=== PATIENT | male | born 1955 | race Caucasian/White ===

== ENCOUNTER 2023-03-11 12:10 | Emergency (ER) | payer OTHER, SELFPAY ==
[2023-03-11 12:15] VITALS: BP 134/65; PULSE 95; RESP 17; TEMP 36.5; O2SAT 98
--- NOTE | 2023-03-11 12:15 | ED.GENADULT ---
HPI - General Adult General Chief complaint: Back Pain/Injury Stated complaint: back pain/injury Time Seen by Provider: 03/11/23 12:14 History of Present Illness HPI narrative: 67yo man presents with low back pain, new onset after getting out of heavy machinery, door caught the wind and pushed pt off onto the ground, landed on shoulder and rolled. No pain in chest or neck or shoulder. Did not hit head. Related Data Home Medications Medication Instructions Recorded Confirmed calcium 600 mg capsule 1 mg PO BID 03/11/23 03/11/23 diltiazem HCl 180 mg 180 mg PO BID 03/11/23 03/11/23 capsule,extended release 24 hr esomeprazole magnesium 20 mg 20 mg PO DAILY 03/11/23 03/11/23 capsule,delayed release (Nexium 24HR) magnesium 200 mg tablet 400 mg PO DAILY 03/11/23 03/11/23 metformin 1,000 mg tablet,extended 1,000 mg PO BID 03/11/23 03/11/23 release 24hr montelukast 10 mg tablet 10 mg PO HS 03/11/23 03/11/23 rivaroxaban 20 mg tablet 20 mg PO QPM 03/11/23 03/11/23 rosuvastatin 10 mg tablet 10 mg PO DAILY 03/11/23 03/11/23 spironolactone 25 mg tablet 25 mg PO DAILY 03/11/23 03/11/23 tadalafil 5 mg tablet 5 mg PO DAILY 03/11/23 03/11/23 valsartan 160 1 tablet PO DAILY 03/11/23 03/11/23 mg-hydrochlorothiazide 12.5 mg tablet Allergies Allergy/AdvReac Type Severity Reaction Status Date / Time Penicillins Allergy Anaphylaxis Verified 03/11/23 12:20 Review of Systems Review of Systems: All systems reviewed & are unremarkable except as noted in HPI and below Constitutional: Constitutional: Denies fever(s) ENT: Denies dysphagia Cardiovascular: Cardiovascular: Denies chest pain Respiratory: Respiratory: Denies dyspnea Exam Const: General: healthy appearing and no acute distress Nutritional Appearance: well nourished Eyes: Conjunctivae: conjunctivae normal Neck: Other: intact ROM Resp: Effort & Inspection: normal respiratory effort Cardio: Rate: regular rate GI: Inspection: non-distended Back/Spine/Pelvis: Back: no CVA tenderness Other: no midline spinal tenderness Skin: General skin exam: normal color, no jaundice and no pallor Course Vital Signs Vital signs: Vital Signs Temperature 36.5 C 03/11/23 12:15 Pulse Rate 95 03/11/23 12:15 Respiratory Rate 17 03/11/23 12:15 Blood Pressure 134/65 03/11/23 12:15 Pulse Oximetry 98 03/11/23 12:15 Oxygen Delivery Room Air 03/11/23 12:15 Temperature 36.5 C 03/11/23 12:15 Pulse Rate 95 03/11/23 12:15 Respiratory Rate 17 03/11/23 12:15 Blood Pressure 134/65 03/11/23 12:15 Pulse Oximetry 98 03/11/23 12:15 Oxygen Delivery Room Air 03/11/23 12:15 Medical Decision Making MDM Narrative Medical decision making narrative: low back pain without radiculopathy DDx muscle strain, muscle spasm, contusion, no evidence of spinal fracture, neck injury, or extremity injury Vital Signs Vital Signs: Vital Signs Temperature 36.5 C 03/11/23 12:15 Pulse Rate 95 03/11/23 12:15 Respiratory Rate 17 03/11/23 12:15 Blood Pressure 134/65 03/11/23 12:15 Pulse Oximetry 98 03/11/23 12:15 Oxygen Delivery Room Air 03/11/23 12:15 Temperature 36.5 C 03/11/23 12:15 Pulse Rate 95 03/11/23 12:15 Respiratory Rate 17 03/11/23 12:15 Blood Pressure 134/65 03/11/23 12:15 Pulse Oximetry 98 03/11/23 12:15 Oxygen Delivery Room Air 03/11/23 12:15 Discharge Plan Discharge Clinical Impression: Acute bilateral low back pain without sciatica, Strain of muscle, fascia and tendon of lower back, initial encounter Patient Disposition: Home, Self-Care Condition: Improved Additional Instructions: Take the prescribed medications as needed to help relax your back muscles, calm any inflammation, and help your back pain. It may also be helpful to apply ice to any painful area and then alternate with a heating pad to more fully relax the muscles. You may retur
[2023-03-11 12:30] VITALS: BP 114/67; PULSE 92; RESP 17; O2SAT 100
[2023-03-11] MEDS: ACETAMINOPHEN 500 MG TABLET 1000 MG PO (12:33)
[2023-03-11] MEDS: methocarbamoL 500 MG TABLET 1000 MG PO (12:33)
[2023-03-11] MEDS: KETOROLAC (*BKC) 60 MG/2 ML VIAL IM (12:35)
[2023-03-11] MEDS: ORPHENADRINE CITRATE 30 MG/ML 2 ML VIAL 60 MG IM (12:35)
[2023-03-11 13:00] VITALS: BP 120/60; PULSE 91; RESP 17; O2SAT 98
[2023-03-11 13:30] VITALS: BP 109/63; PULSE 89; RESP 18; O2SAT 97
[2023-03-11 13:40] VITALS: BP 109/63; PULSE 89; RESP 18; TEMP 36.5; O2SAT 97
== END 2023-03-11 13:40 | disposition home or self-care (01) ==
LOC: CHSED 12:49
PROVIDERS: Emergency Provider Emergency Medicine; PCP Family Medicine
DX: S39.012A Strain of muscle, fascia and tendon of lower back, initial encounter (principal); Z79.899 Other long term (current) drug therapy; Z79.84 Long term (current) use of oral hypoglycemic drugs; W31.9XXA Contact with unspecified machinery, initial encounter
CPT/HCPCS: 96372; 99284; A9270; J1885; J2360

== ENCOUNTER 2023-08-09 07:38 | Emergency (ER) | payer OTHER, SELFPAY ==
[2023-08-09] VITALS (13 sets, daily range): BP systolic 108–143; BP diastolic 63–89; PULSE 79–117; RESP 10–20; TEMP 36.3–36.9; O2SAT 96–99
--- NOTE | ~2023-08-09 | XR_ITS ---
EXAMINATION: XR chest 2V DATE: 08/09/2023 08:23 INDICATION: Chest pain. TECHNIQUE: Frontal and lateral views of the chest were obtained. COMPARISON: None. FINDINGS: A calcified right lung nodules consistent with old granulomatous disease. There are airspac e opacities at the lung bases. No pleural effusion or pneumothorax. The heart size is normal. IMPRESSION: 1. Airspace opacities at the lung bases, consistent with atelectasis or less likely pneumonia. Reviewed, dictated and finalized at location A. IMPRESSION: 1. Airspace opacities at the lung bases, consistent with atelectasis or less li jc pneumonia.
--- NOTE | 2023-08-09 07:39 | ECG_ITS ---
Measurements Intervals [place] Rate: 120 P: IN: 0 QRS: -4 QRSD: 86 T: 73 QT: 306 QTc: 433 Interpretive Statements ATRIAL FIBRILLATION WITH RAPID VENTRICULAR RESPONSE NONSPECIFIC T-WAVE ABNORMALITY ABNORMAL RHYTHM ECG NO PREVIOUS ECG AVAILABLE FOR COMPARISON Electronically Signed On 08-09-2023 7:51:12 CDT by Yash De Jesus M.D.
[2023-08-09 08:02] LABS: Basophils Percent Auto 0.6 % (0.2-1.2); Eosinophils Absolute Auto 0.1 K/mm3 (0-0.3); Eosinophils Percent Auto 1.3 % (0-4.4); Hematocrit 46.9 % (42.0-52.0); Hemoglobin 15.6 g/dL (14.0-18.0); Immature Granulocyte Absolute 0.03 K/mm3 (0.00-0.031); Immature Granulocyte Percent A 0.4 % (0-0.5); Lymphocytes Absolute Auto 1.17 K/mm3 (0.9-3.2); Lymphocytes Percent Auto 17.3 % (18.3-44.2); Mean Corpuscular HGB Conc 33.3 g/dl (32-36); Mean Corpuscular Hemoglobin 29.4 pg (26-34); Mean Corpuscular Volume 88.3 fl (80-100); Mean Platelet Volume 9.9 fl (7.4-10.4); Monocytes Absolute Auto 0.5 K/mm3 (0.1-0.6); Monocytes Percent Auto 7.1 % (2.6-8.5); Neutrophils Percent Auto 73.3 % (45.5-73.1); Platelet Count Result 309 k/mm3 (150-375); Red Blood Count 5.31 M/mm3 (4.6-6.20); Red Cell Distribution Width 12.8 % (11.5-14.5); White Blood Count 6.8 K/mm3 (4.5-10.0)
[2023-08-09 08:15] LABS: Alanine Aminotransferase 21 U/L (6-50); Albumin Level 4.5 g/dL (3.5-5.1); Alkaline Phosphatase 81 U/L (38-126); Anion Gap 7 mmol/L (4-12); Aspartate Amino Transferase 21 U/L (17-59); Bilirubin,Total 0.6 mg/dL (0.2-1.3); Blood Urea Nitrogen 19 mg/dL (9-20); Calcium 9.6 mg/dL (8.4-10.2); Carbon Dioxide 28 mmol/L (22-30); Chloride 103 mmol/L (98-107); Estimated CRCL calculation 99 ml/min; Estimated Glomerular Filt Rate > 60; Glucose 226 mg/dL (65-110); Lipase 127 U/L (23-300); Potassium 4.1 mmol/L (3.4-5.0); Sodium 138 mmol/L (137-145)
[2023-08-09 08:25] LABS: Troponin I < 0.012 ng/mL (0.000-0.034)
[2023-08-09 08:37] LABS: INR 1.3; Prothrombin Time 17.2 Seconds (11.1-14.7)
[2023-08-09 08:38] LABS: Partial Thromboplastin Time 33.9 Seconds (22.3-36.8)
[2023-08-09] MEDS: ASPIRIN 81 MG CHEWABLE TABLET 324 MG PO (08:50)
--- NOTE | 2023-08-09 09:09 | ED.CHESTPAIN ---
HPI - Chest Pain General Chief Complaint: Chest Pain Stated Complaint: CP Time Seen by Provider: 08/09/23 08:52 History of Present Illness HPI narrative: 67-year-old male presenting to the emergency department for evaluation of epigastric and left upper quadrant abdominal pain. Patient states he is having breakfast this morning when he had onset of the chest pain. Patient states it did radiate to his back and neck. Patient did have associated diaphoresis with this. Patient does have a history of AFib but has no prior history of RI. Patient reports he did have a stress test approximately 1 year ago and this was negative. Upon arrival to the emergency department patient states that his pain is significantly improved. Patient does have reproducible left upper quadrant abdominal pain. Patient does take Cardizem and Xarelto for AFib. Patient is diabetic Related Data Home Medications Medication Instructions Recorded Confirmed diltiazem HCl 180 mg 180 mg PO BID 03/11/23 08/09/23 capsule,extended release 24 hr metformin 1,000 mg tablet,extended 1,000 mg PO BID 03/11/23 08/09/23 release 24hr (osmotic) montelukast 10 mg tablet 10 mg PO HS 03/11/23 08/09/23 rivaroxaban 20 mg tablet 20 mg PO QPM 03/11/23 08/09/23 rosuvastatin 10 mg tablet 10 mg PO DAILY 03/11/23 08/09/23 spironolactone 25 mg tablet 25 mg PO DAILY 03/11/23 08/09/23 tadalafil 5 mg tablet 5 mg PO DAILY 03/11/23 03/11/23 valsartan 160 1 tablet PO DAILY 03/11/23 08/09/23 mg-hydrochlorothiazide 12.5 mg tablet Allergies Allergy/AdvReac Type Severity Reaction Status Date / Time Penicillins Allergy Anaphylaxis Verified 08/09/23 07:53 Review of Systems Review of Systems: All systems reviewed & are unremarkable except as noted in HPI and below Exam Narrative: APPEARANCE: Well appearing, no pain, no distress, well-nourished. HEAD: normocephalic, atraumatic. EYES: PERRLA/EOMI, conjunctivae clear. NOSE: Normal no drainage EARS:TMS clear with good light reflex. THROAT: Pharynx clear, no exudate. NECK: Supple. No adenopathy, no masses. RESPIRATORY: Airway patent, respirations nonlabored. Clear to auscultation bilaterally, no rales, rhonchi, wheezing. CARDIOVASCULAR: Regular rate and rhythm without murmurs rubs or gallops. ABDOMINAL: reproducible left upper quadrant tenderness to palpation MUSCULOSKELETAL: Moves all extremities. Strength/ROM intact, No edema, No calf tenderness. NEURO: Alert. Cranial nerves II through XII intact. grossly intact SKIN: Warm, dry. Normal Color Course Vital Signs Vital signs: Vital Signs Temperature 97.3 F L 08/09/23 07:46 Pulse Rate 112 H 08/09/23 07:46 Respiratory Rate 18 08/09/23 07:46 Blood Pressure 143/63 H 08/09/23 07:46 Pulse Oximetry 98 08/09/23 07:46 Oxygen Delivery Room Air 08/09/23 07:46 Temperature 98.4 F 08/09/23 12:59 Pulse Rate 79 08/09/23 12:59 Respiratory Rate 18 08/09/23 12:59 Blood Pressure 124/77 08/09/23 12:59 Pulse Oximetry 99 08/09/23 12:59 Oxygen Delivery Room Air 08/09/23 07:46 MDM - Chest Pain MDM Narrative Medical decision making narrative: 67-year-old male present to the ED for evaluation of left upper quadrant pain. Patient is afebrile with no leukocytosis and a stable hemoglobin of 15.6. Patient has an INR of 1.3. No acute abnormalities on the patient's CMP and patient's initial troponin was negative. Lipase was negative and patient's initial EKG showed AFib with RVR with heart rate in the 110s. Patient's heart rate did improve with IV fluids and with a small dose of Cardizem. Patient confirmed he did take his Cardizem this morning. Patient states his symptoms were resolved with a GI cocktail. Patient is afebrile with no leukocytosis and a stable hemoglobin patient has negative serial troponins and a negative D-dimer. EKG showed no evidence of acute STEMI. Due to patient having chest pain with associated diaphoresis he was offered ad
[2023-08-09] MEDS: NITROGLYCERIN SL 0.4 MG TABLET SUBLINGUAL (09:32)
[2023-08-09] MEDS: SODIUM CHLORIDE 0.9% IV 500 ML 999 ML IV CONT (09:32)
[2023-08-09] MEDS: BELLADONNA ALK/PHENOB ELIX 10 ML, MAG HYDROX/ALUMINUM HYD/SIMETH 30 ML, LIDOCAINE HCL 2... PO (09:33)
[2023-08-09 10:20] LABS: D Dimer 0.28 ug/mL (<0.48)
--- NOTE | 2023-08-09 10:36 | ECG_ITS ---
Measurements Intervals [place] Rate: 104 P: NM: 0 QRS: 14 QRSD: 84 T: 64 QT: 309 QTc: 408 Interpretive Statements ATRIAL FIBRILLATION WITH RAPID VENTRICULAR RESPONSE NONSPECIFIC T-WAVE ABNORMALITY ABNORMAL RHYTHM ECG COMPARED TO ECG 08/09/2023 07:42:41 NO SIGNIFICANT CHANGES Electronically Signed On 08-09-2023 12:33:23 CDT by Yash De Jesus M.D.
[2023-08-09] MEDS: dilTIAZem HCl INJ 25 MG/5 ML VIAL 10 MG IV PUSH (10:59)
[2023-08-09 11:01] LABS: Troponin I < 0.012 ng/mL (0.000-0.034)
== END 2023-08-09 12:59 | disposition home or self-care (01) ==
PROVIDERS: Emergency Provider Emergency Medicine; PCP Family Medicine
DX: R07.89 Other chest pain (principal)
CPT/HCPCS: 36415; 71046; 80053; 83690; 84484; 85025; 85380; 85610; 85730; 93005; 96361; 96374; 99284; A9270; J7040

== ENCOUNTER 2023-08-18 22:29 | Observation (INO) | payer OTHER, MEDICARE, SELFPAY ==
--- NOTE | ~2023-08-18 | XR_ITS ---
Clinical Indication: Chest pain AP and lateral views of the chest: Comparison: 08/09/2023 Findings: Probable subsegmental left basilar atelectatic change. Right lung clear.. Cardiomediastina l silhouette is within normal limits. Bones and soft tissues are unremarkable. Impression: Probable subsegmental left basilar atelectatic change or scarring. Reviewed, dictated and finalized at location . Impression: Probable subsegmental left basilar atelectatic change or scarring.
--- NOTE | ~2023-08-18 | CT_ITS ---
Clinical Indication: Chest pain, shortness of breath CT Scan of the Chest with Contrast: Technique: Contiguous sections were acquired throughout the chest after intravenous administration of 100 cc of Omnipaque 350. Dose reduction technique was used on this scan by utilizing automated expos ure control and iterative reconstruction technique. The dose-length product (DLP) was 956.07 mGy-cm. Findings: There is no evidence of any significant mediastinal, hilar or axillary lymphadenopathy. No large cent ral pulmonary embolus seen. Evaluation for smaller, more peripheral pulmonary emboli is suboptimal du e to timing of contrast bolus. There is no evidence of aortic dissection or aneurysm. There is no evidence of pleural or pericardial effusion. The lungs are clear, aside from left basilar atelectatic change and several scattered calcified granu edita. Images through the upper abdomen reveal no abnormalities. Impression: No large central pulmonary embolus. Evaluation for smaller, more peripheral pulmonary emboli is subop timal due to timing of the contrast bolus. No significant pulmonary abnormality. Reviewed, dictated and finalized at [facility]. Impression: No large central pulmonary embolus. Evaluation for smaller, more peripheral pul monary emboli is suboptimal due to timing of the contrast bolus. No significant pulmonary abnormality.
--- NOTE | ~2023-08-18 | US_ITS ---
Limited Abdominal Sonogram: Real-time sonographic imaging of the right upper quadrant was performed. Clinical History: Right upper quadrant pain Findings: The liver appears mildly echogenic/heterogeneous, with no evidence of mass lesion or bile duct dilatation. Main portal vein demonstrates normal direction of flow. The gallbladder is well dist ended, and appears normal with no evidence of gallstone or wall thickening. The common bile duct shante ures 5 mm. The visualized pancreas, aorta, and IVC are unremarkable. Impression: Suspected fatty infiltration of the liver versus other chronic liver disease. Reviewed, dictated and finalized at location M. Impression: Suspected fatty infiltration of the liver versus other chronic liver disease.
--- NOTE | 2023-08-18 22:31 | PC.NURSE ---
Patient arrived at triage desk clutching his chest c/o chest pain that feels like something is sitting on my chest. States it is hard to breathe. Took a nitro prior to arrival around 2029. Patient taken from triage desk to ED room 7.
[2023-08-18 22:34] VITALS: BP 128/77; PULSE 114; RESP 20; TEMP 36.9; O2SAT 98
--- NOTE | 2023-08-18 22:35 | ECG_ITS ---
SEE SCANNED COPY FOR CONFIRMED REPORT MTDD
[2023-08-18] MEDS: ASPIRIN 81 MG CHEWABLE TABLET 324 MG PO (22:40)
[2023-08-18 22:46] LABS: Basophils Percent Auto 0.3 % (0.2-1.2); Eosinophils Absolute Auto 0.1 K/mm3 (0-0.3); Eosinophils Percent Auto 0.8 % (0-4.4); Hematocrit 43.2 % (42.0-52.0); Hemoglobin 14.8 g/dL (14.0-18.0); Immature Granulocyte Absolute 0.04 K/mm3 (0.00-0.031); Immature Granulocyte Percent A 0.3 % (0-0.5); Lymphocytes Absolute Auto 0.73 K/mm3 (0.9-3.2); Lymphocytes Percent Auto 6.3 % (18.3-44.2); Mean Corpuscular HGB Conc 34.3 g/dl (32-36); Mean Corpuscular Hemoglobin 30.1 pg (26-34); Mean Corpuscular Volume 87.8 fl (80-100); Mean Platelet Volume 9.8 fl (7.4-10.4); Monocytes Absolute Auto 0.7 K/mm3 (0.1-0.6); Monocytes Percent Auto 5.8 % (2.6-8.5); Neutrophils Absolute Auto 10.1 K/mm3 (1.3-6.7); Neutrophils Percent Auto 86.5 % (45.5-73.1); Platelet Count Result 248 k/mm3 (150-375); Red Blood Count 4.92 M/mm3 (4.6-6.20); Red Cell Distribution Width 13.2 % (11.5-14.5); White Blood Count 11.7 K/mm3 (4.5-10.0)
[2023-08-18 22:58] LABS: INR 1.6; Prothrombin Time 20.1 Seconds (11.1-14.7)
[2023-08-18 22:58] LABS: Alanine Aminotransferase 18 U/L (6-50); Albumin Level 4.6 g/dL (3.5-5.1); Alkaline Phosphatase 90 U/L (38-126); Anion Gap 8 mmol/L (4-12); Aspartate Amino Transferase 20 U/L (17-59); Bilirubin,Total 0.7 mg/dL (0.2-1.3); Blood Urea Nitrogen 18 mg/dL (9-20); Calcium 9.3 mg/dL (8.4-10.2); Carbon Dioxide 28 mmol/L (22-30); Chloride 99 mmol/L (98-107); Estimated CRCL calculation 84 ml/min; Estimated Glomerular Filt Rate > 60; Glucose 319 mg/dL (65-110); Lipase 122 U/L (23-300); Potassium 3.8 mmol/L (3.4-5.0); Sodium 135 mmol/L (137-145)
[2023-08-18 22:59] LABS: Partial Thromboplastin Time 33.4 Seconds (22.3-36.8)
--- NOTE | 2023-08-18 23:03 | ED.CHESTPAIN ---
HPI - Chest Pain General Chief Complaint: Chest Pain Stated Complaint: chest pain, sob Time Seen by Provider: 08/18/23 22:36 Source: patient Mode of arrival: ambulatory Limitations: no limitations History of Present Illness HPI narrative: Was 67-year-old male presenting for chest pain has history of AFib. On Xarelto. Thought it might have been AFib were some other sort of heart issue. No shortness of breath however pain is worse with deep breathing. Related Data Home Medications Medication Instructions Recorded Confirmed diltiazem HCl 180 mg 180 mg PO BID 03/11/23 08/09/23 capsule,extended release 24 hr metformin 1,000 mg tablet,extended 1,000 mg PO BID 03/11/23 08/09/23 release 24hr (osmotic) montelukast 10 mg tablet 10 mg PO HS 03/11/23 08/09/23 rivaroxaban 20 mg tablet 20 mg PO QPM 03/11/23 08/09/23 rosuvastatin 10 mg tablet 10 mg PO DAILY 03/11/23 08/09/23 spironolactone 25 mg tablet 25 mg PO DAILY 03/11/23 08/09/23 tadalafil 5 mg tablet 5 mg PO DAILY 03/11/23 03/11/23 valsartan 160 1 tablet PO DAILY 03/11/23 08/09/23 mg-hydrochlorothiazide 12.5 mg tablet Allergies Allergy/AdvReac Type Severity Reaction Status Date / Time Penicillins Allergy Anaphylaxis Verified 08/18/23 22:39 Review of Systems Review of Systems: All systems reviewed & are unremarkable except as noted in HPI and below Exam Narrative: Constitutional: Generally well appearing, no acute distress Head: Atraumatic, no deformities. Eyes: Pupils equal, round, and reactive to light. Neck: Supple, no tracheal deviation, no JVD. ENMT: Mucous membranes moist Cardiovascular: S1, S2 auscultated. No murmurs, rubs, or gallops. No S3/S4. Normal Distal pulses. No peripheral edema. Respiratory: Lung sounds equal. No wheezes, rales, or rhonchi. Gastrointestinal: Abdomen was soft and non-tender. Non-distended. No rebound or guarding. Genitourinary: Deferred Musculoskeletal: Normal muscle tone and bulk. No obvious deformities or tenderness over extremities. Skin: No rashes. Neurological: Strength 5/5 in extremities. Cranial nerves I-XII grossly intact. Distal sensation intact. Mental Status: Awake, alert and oriented x3. Follows commands Course Vital Signs Vital signs: Vital Signs Temperature 36.9 C 08/18/23 22:34 Pulse Rate 114 H 08/18/23 22:34 Respiratory Rate 20 08/18/23 22:34 Blood Pressure 128/77 08/18/23 22:34 Pulse Oximetry 98 08/18/23 22:34 Oxygen Delivery Room Air 08/18/23 22:34 Temperature 36.9 C 08/18/23 22:34 Pulse Rate 110 H 08/19/23 02:50 Respiratory Rate 15 08/19/23 02:50 Blood Pressure 107/75 08/19/23 02:50 Pulse Oximetry 98 08/19/23 02:50 Oxygen Delivery Room Air 08/18/23 22:34 MDM - Chest Pain MDM Narrative Medical decision making narrative: 67-year-old male presenting for chest pain, central, worse with deep breathing since 3:00 p.m. today. On exam he is generally well-appearing however he is a bit tachycardic. Nontoxic appearing. EKG obtained showing no obvious ischemic changes in does not appear to be in AFib. EKG obtained, shows sinus tachycardia with occasional supraventricular premature complexes. Normal intervals. Rate is 112. No ST elevation or depression. Impression: No STEMI Obtaining cardiac workup with patient, CTA chest for PE given his tachycardia cannot be ruled out. Labs and imaging reviewed. Troponin negative x2. CTA shows no PE but is not a great study. Patient remains tachycardic. BNP is elevated. Will admit for heart score of 4, patient is still having some chest pains, and persistent tachycardia. Discussed with hospitalist. Admission orders placed. Lab Data 08/18/23 22:41 08/18/23 22:41 Labs: Lab Results 08/18/23 08/18/23 08/18/23 Range/Units 22:41 22:42 22:56 WBC 11.7 H (4.5-10.0) K/mm3 RBC 4.92 (4.6-6.20) M/mm3 Hgb 14.8 (14.0-18.0) g/dL Hct 43.2 (42.0-52.0) % MCV 87.8
[2023-08-18 23:08] LABS: Troponin I < 0.012 ng/mL (0.000-0.034)
[2023-08-19] VITALS (25 sets, daily range): BP systolic 107–160; BP diastolic 62–99; PULSE 97–136; RESP 14–22; TEMP 36.4–37.8; O2SAT 91–98; BMI 41.8
[2023-08-19 00:24] LABS: D Dimer 0.35 ug/mL (<0.48)
[2023-08-19 00:24] LABS: NT Pro B Type Natriuretic Pept 1000 pg/mL (19.9-100)
[2023-08-19 02:02] LABS: Troponin I < 0.012 ng/mL (0.000-0.034)
--- NOTE | 2023-08-19 04:25 | ADMGEN ---
This patient, Kleber Melara, was admitted to IMU Room 211-01. Patient/family oriented to hospital policies and general routines including ID bracelet, bed and alarms, visiting hours, pain management, procedures, bathroom and other care routines, personal items, smoking policy, room service/diet, and visiting hours. Information on how to activate the Rapid Response Team has been discussed. Patient/Family are encouraged to report perceived risks to care and to ask questions if they do not understand what they are told or what they should do.
--- NOTE | 2023-08-19 04:50 | ECG_ITS ---
SEE SCANNED COPY FOR CONFIRMED REPORT MTDD
[2023-08-19 05:02] LABS: Troponin I < 0.012 ng/mL (0.000-0.034)
[2023-08-19] MEDS: SODIUM CHLORIDE 0.9% IV 1,000 ML 999 ML IV CONT (05:51)
--- NOTE | 2023-08-19 05:55 | PM.IMHP ---
H&P: HPI History of Present Illness Date/Time: 08/19/23 05:55 Chief Complaint: Chest pain Narrative: 67-year-old male with a past medical history of BPH, essential hypertension, morbid obesity, obstructive sleep apnea and paroxysmal atrial fibrillation who presented to the ER with chest pain. Patient reports that his symptoms initially started around 15:30 yesterday. The symptoms started a couple hours after he had eaten. He then ate again around 17:00. After that meal the patient's pain significantly increased. Pain was 7/10 intensity at its worst. He reports that his pain is currently 4/10 in intensity but spiked to a 7/10 intensity with palpation. He reports a generalized tightness around distal lower chest that is constant but is worse with deep breathing. He denied any known fevers or chills at home. But at the time my evaluation the patient reports that he was actively cold and at that time he was mildly diaphoretic and hot to touch. Temperature was 99.3?. He reports that his stools have been smaller over the last 24 hours due to decreased appetite. He has not had any nausea or vomiting. He states that he has been having similar symptoms intermittently for the past 4 years. The pain used to get worse when he would eat 1000 [place] dressing so he quit eating the dressing and the symptoms improved. He reports that the pain does get worse when he also eats fatty meals. When he has these symptoms intermittently he does have some associated loose stools but has not had loose stools with this occurrence. It sounds as if the symptoms are increasing in frequency and duration. He had a stress test last year that was negative. 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 He was evaluated in the ER 9 days ago and treated with a GI cocktail which improved his symptoms and discharged home after he had 2 neg troponins. He reports that his pain 9 days ago was a little bit lower and more located in his abdomen. Today is biggest complaint is that the pain is worse when he takes a deep breath. He had a CTA performed in the ER that was negative for central pulmonary embolism but contrast bolus was poorly timed. He reports that he did take and nitro sublingual at home with no improvement in his symptoms. In the ER was noted to be tachycardic EKG demonstrated sinus tachycardia. He reports that he feels dehydrated and thirsty but has no appetite. He does report that he is short of breath for shortness of breast that is unchanged from baseline. He has not had any cough or congestion. He denies any ill contacts. Review of Systems Review of Systems: 12 systems were reviewed with pertinent positives and negatives per HPI. Except as documented in the HPI, all other systems were reviewed and are negative. He has chronic dribbling of urine since his TURP approximately 10 years ago. He has chronic shortness of breath that is unchanged from baseline. The patient reports he has chronic pitting edema lower extremities unchanged from baseline [facility] Past Medical History Medical History (Updated 08/19/23 @ 06:26 by Lesley Ambrocio DO) BPH (benign prostatic hyperplasia) Essential hypertension Morbid obesity with BMI of 40.0-44.9, adult Obstructive sleep apnea on CPAP Type 2 diabetes mellitus Surgical History Surgical History (Updated 08/19/23 @ 06:24 by Lesley Ambrocio DO) History of sinus surgery History of transurethral resection of prostate (~2012) Family History Family History (Updated 08/19/23 @ 06:27 by Lesley Ambrocio DO) Mother Colon cancer Father , At age 54 Post poliomyelitis syndrome Social History Social History (Updated 08/19/23 @ 06:29 by Lesley Ambrocio DO) Social History: The patient lives with his they have been since 1976. A raised a daughter and a son who are both healthy. He smoked 1 pack of cigarettes per day for approximately 35 years. He quit smoking
[2023-08-19 06:04] LABS: Basophils Percent Auto 0.2 % (0.2-1.2); Eosinophils Percent Auto 0.4 % (0-4.4); Hematocrit 43.4 % (42.0-52.0); Hemoglobin 14.7 g/dL (14.0-18.0); Immature Granulocyte Absolute 0.03 K/mm3 (0.00-0.031); Immature Granulocyte Percent A 0.3 % (0-0.5); Lymphocytes Absolute Auto 0.81 K/mm3 (0.9-3.2); Lymphocytes Percent Auto 8.3 % (18.3-44.2); Mean Corpuscular HGB Conc 33.9 g/dl (32-36); Mean Corpuscular Hemoglobin 30.1 pg (26-34); Mean Corpuscular Volume 88.9 fl (80-100); Mean Platelet Volume 10.6 fl (7.4-10.4); Monocytes Absolute Auto 0.9 K/mm3 (0.1-0.6); Monocytes Percent Auto 9.1 % (2.6-8.5); Neutrophils Absolute Auto 7.9 K/mm3 (1.3-6.7); Neutrophils Percent Auto 81.7 % (45.5-73.1); Platelet Count Result 249 k/mm3 (150-375); Red Blood Count 4.88 M/mm3 (4.6-6.20); Red Cell Distribution Width 13.1 % (11.5-14.5); White Blood Count 9.7 K/mm3 (4.5-10.0)
[2023-08-19] MEDS: MORPHINE SULFATE (*CRX) 4 MG/ML INJ IV PUSH (06:28)
[2023-08-19 06:39] LABS: Alanine Aminotransferase 18 U/L (6-50); Albumin Level 4.2 g/dL (3.5-5.1); Alkaline Phosphatase 79 U/L (38-126); Amylase 47 U/L (30-110); Anion Gap 8 mmol/L (4-12); Aspartate Amino Transferase 18 U/L (17-59); Bilirubin,Total 0.6 mg/dL (0.2-1.3); Blood Urea Nitrogen 16 mg/dL (9-20); Calcium 9.2 mg/dL (8.4-10.2); Carbon Dioxide 26 mmol/L (22-30); Chloride 100 mmol/L (98-107); Estimated CRCL calculation 97 ml/min; Estimated Glomerular Filt Rate > 60; Glucose 267 mg/dL (65-110); Lipase 116 U/L (23-300); Potassium 4.5 mmol/L (3.4-5.0); Sodium 134 mmol/L (137-145)
[2023-08-19] MEDS: SODIUM CHLORIDE 0.9% IV 1,000 ML 150 ML IV CONT (06:40)
[2023-08-19] MEDS: metroNIDAZOLE 500 MG/ISO 100ML 500 MG/100 ML BAG 100 MG IVPB ×4 (06:44→23:22)
[2023-08-19 06:54] LABS: Procalcitonin 0.1 ng/mL
[2023-08-19 07:33] LABS: Lactic Acid Reflex 2.2 mmol/L (0.7-2.0)
[2023-08-19 08:17] LABS: Glucose Point of Care 241 mg/dl (65-105)
[2023-08-19] MEDS: dilTIAZem HCL CD 180 MG CAP.24HR PO ×2 (08:55→18:14)
[2023-08-19 10:17] LABS: Reflex Lactic Acid Yes or No Add Lactic
[2023-08-19 12:30] LABS: Glucose Point of Care 249 mg/dl (65-105)
--- NOTE | 2023-08-19 13:10 | PM.CNGS ---
Assessment and Plan Assessment and plan (1) Cholecystitis with cholelithiasis: Code(s): K80.10 - Calculus of gallbladder with chronic cholecystitis without obstruction Status: Acute Assessment and Plan: long discussion with patient and family and decision to proceed with urgent cholecystectomy, discussed with medical team and agreed with plan (2) Afib: Code(s): I48.91 - Unspecified atrial fibrillation Status: Acute Assessment and Plan: continue to hold Xarelto at this time (3) Type 2 diabetes mellitus with hyperglycemia, without long-term current use of insulin: Code(s): E11.65 - Type 2 diabetes mellitus with hyperglycemia Status: Acute Assessment and Plan: stable, continue current management per medical team History of Present Illness Consult details Consult date: 08/19/23 Reason for consult: abdominal pain Requesting physician: Genaro Arceo MD Narrative: The patient is a 67-year-old male with multiple medical issues presenting to the hospital complaining of severe epigastric pain with radiation to the chest. He reports that the symptoms have been ongoing for the last couple of months and worsening in nature. The patient reports that the episodes usually come on after eating, especially fatty meals. The patient also describes associated bloating and nausea. The patient has had an extensive cardiac workup that has been negative. He was actually seen in the ER couple of weeks ago for similar symptoms. The patient has been admitted to the medical service and workup, including imaging, is significant for what looks to be acute on chronic cholecystitis. Review of Systems Review of Systems: All systems reviewed & are unremarkable except as noted in HPI and below PMFSH Past Medical History Medical History BPH (benign prostatic hyperplasia) Essential hypertension Morbid obesity with BMI of 40.0-44.9, adult Obstructive sleep apnea on CPAP Type 2 diabetes mellitus Surgical History Surgical History History of sinus surgery History of transurethral resection of prostate (~2012) Family History Family History Mother Colon cancer Father , At age 54 Post poliomyelitis syndrome Social History Social History Social History: The patient lives with his they have been since 1976. A raised a daughter and a son who are both healthy. He smoked 1 pack of cigarettes per day for approximately 35 years. He quit smoking 25 years ago. He drinks approximately 1 alcoholic beverage a month. He denies illicit substance use. 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 Code status: Full code Surrogate decision maker: Smoking packs per day: 1 Smoking cigarettes per day: 20.0 Years smoked: 35 Smoking pack-years: 35.00 Smoking status: Former smoker Tobacco type: cigarettes Alcohol intake: current Drinks per week: 1 Substance use: never Do You Feel Safe in your Home?: Yes Lack of Transportation: No Lack of Food: Never True Current Housing: I Have Housing Concerned About Future Housing: No Difficulty Paying Gas/Electric Bills: No Difficulty Paying for Meds: No Currently Unemployed: No Education: High School Diploma/GED Difficulty w/ Childcare or Family Care: No Spiritual care concerns: No Meds Home Medications and Allergies Home Medications Medication Instructions Recorded Confirmed Type diltiazem HCl 180 mg 180 mg PO BID 03/11/23 08/19/23 History capsule,extended release 24 hr metformin 1,000 mg tablet,extended 1,000 mg PO BID 03/11/23 08/19/23 History release 24hr (osmotic) montelukast 10 mg tablet 10 mg PO HS 03/11/23 08/19/23 History rivaroxaban 20
--- NOTE | 2023-08-19 13:16 | WPDHPUPDATE1 ---
History and Physical Update Update Date/Time: 08/19/23 13:16 History and Physical has been reviewed, including an updated exam of the patient. There are NO changes in the patient's condition. Risks, benefits, and alternatives have been discussed and questions answered. Patient agrees to proceed with procedure.
--- NOTE | 2023-08-19 15:18 | PM.IMPN ---
Progress Note: A&P Assessment and Plan (1) Right upper quadrant pain: Code(s): R10.11 - Right upper quadrant pain Status: Acute (2) SIRS (systemic inflammatory response syndrome): Code(s): R65.10 - Systemic inflammatory response syndrome (SIRS) of non-infectious origin without acute organ dysfunction Status: Acute (3) Atypical chest pain: Code(s): R07.89 - Other chest pain Status: Acute (4) Type 2 diabetes mellitus with hyperglycemia, without long-term current use of insulin: Code(s): E11.65 - Type 2 diabetes mellitus with hyperglycemia Status: Acute (5) Obstructive sleep apnea on CPAP: Code(s): G47.33 - Obstructive sleep apnea (adult) (pediatric) Status: Acute Plan Patient is atypical chest pain with negative cardiac enzymes. Given the presence of patient's right upper quadrant abdominal pain and associated symptoms with food, elevated white count and mildly elevated temperature consistent with SIRS criteria. The patient's clinical picture is most likely consistent with acute on chronic cholecystitis. Will obtain right upper quadrant ultrasound. Patient will remain NPO except meds with sips. Given SIRS criteria will check stat blood cultures and start empiric antibiotic therapy with Rocephin and Flagyl. Patient did not receive the fluid bolus ordered in the ER. Will give 1 L normal saline bolus in place patient on NS at 150 mL an hour thereafter. Will check CBC, CMP, lipase, amylase, lactic and procalcitonin with a.m. labs. Given the cardiac chest pain is ruled out will transfer the patient to medcial floor. Patient has type 2 diabetes mellitus with hyperglycemia. Will hold the patient's metformin as she is NPO. Face with placed on moderate sliding scale insulin with Accu-Cheks q.6 hours while NPO. Patient does have paroxysmal AFib but currently in sinus rhythm. He is on Xarelto at home. This will be placed on hold. His last dose of Xarelto was taken on the 13 in the evening. 08/19/23: EKG reviewed showing sinus tachycardia wit nonspecific T wave changes. Trop negative x 3. Recent (<1yr ago) normal stress test. GB US appears normal. Having fevers and LA was elevated. Chest clear. BCx collected. Will order UA but probably related to acute cholecystitis. Okay to proceed with surgery. Suspect this will not improve all of his symptoms. He may need EGD to exclude gastritis/Hpylori. CPAP at night. Order self-caths. SSI for his DM. Subjective Date/time seen: 08/19/23 15:18 Interval history: 67yo male with DM, CATALINA, pAFib and HTN here for abdominal and chest pain. He feels better today. He was having episodes of SOB when beding over. Also with SOB climbing stairs but more longstanding and not progressively worsening. No CP wiht activity. Stress test and Echo less than a year ago were normal per patient and family. Not available for my review. Also has episodes of bloating and diarrhea after eating but these are seperate then the lower chest/upper abd pain. Abd pain does not seem to be associated with food. Exam Narrative: Tm 100.1 98.8 120/62 97 18 95% ra Gen - NARD Chest - CTA bilaterally, nml RR CV - RRR S1/S2 Abd - Soft, NT/ND, Positive BS Ext - No pedal edema Psych - Nml mood and affect Skin - Warm and dry Objective Data Vital Signs Vital Signs: Vital Signs - 24 hr 08/18/23 22:34 08/18/23 22:34 08/19/23 00:05 Temperature 98.4 F Pulse Rate 114 H 107 H Respiratory Rate 20 19 Blood Pressure 128/77 113/72 Pulse Oximetry 98 97 Oxygen Delivery Room Air Room Air 08/19/23 01:11 08/19/23 02:50 08/19/23 03:35 Temperature Pulse Rate 111 H 110 H 107 H Respiratory Rate 14 15 20 Blood Pressure 117/69 107/75 121/64 Pulse Oximetry 98 98 94 Oxygen Delivery 08/19/23 04:22 08/19/23 04:22 08/19/23 04:24 Temperature 99.3 F Pulse Rate 118 H 118 H 121 H Respiratory Rate 16 16 Blood Pressure 135/79 Pulse Oximetry 97 97 Oxygen Delivery
--- NOTE | 2023-08-19 15:43 | WPDANESEPPF ---
Anes - Initial Pre Proc Eval Procedure: Operation Date: 08/19/23 15:00 Proposed Procedures p Laparoscopic Cholecystectomy - Key Simmons MD Date/Time: 08/19/23 15:43 Surgeon: Lesley Ambrocio DO Pre Op Diagnosis: Chest Pain/Tachycardia Patient Data Age: 67 Gender: M Height: 1.85 m Weight: 143.6 kg Last Vital Signs Temp 98.8 F 08/19/23 13:53 Pulse 97 08/19/23 13:53 Resp 18 08/19/23 13:53 BP 120/62 08/19/23 13:53 Pulse Ox 95 08/19/23 13:53 O2 Del Method Room Air 08/19/23 08:00 Allergies Allergy/AdvReac Type Severity Reaction Status Date / Time Penicillins Allergy Anaphylaxis Verified 08/19/23 15:21 Home Medications Medication Instructions Recorded Confirmed Type diltiazem HCl 180 mg 180 mg PO BID 03/11/23 08/19/23 History capsule,extended release 24 hr metformin 1,000 mg tablet,extended 1,000 mg PO BID 03/11/23 08/19/23 History release 24hr (osmotic) montelukast 10 mg tablet 10 mg PO HS 03/11/23 08/19/23 History rivaroxaban 20 mg tablet 20 mg PO QPM 03/11/23 08/19/23 History rosuvastatin 10 mg tablet 10 mg PO DAILY 03/11/23 08/19/23 History spironolactone 25 mg tablet 25 mg PO DAILY 03/11/23 08/19/23 History tadalafil 5 mg tablet 5 mg PO DAILY 03/11/23 08/19/23 History valsartan 160 1 tablet PO DAILY 03/11/23 08/19/23 History mg-hydrochlorothiazide 12.5 mg tablet Laboratory Tests 08/18/23 08/18/23 08/18/23 22:41 22:42 22:56 WBC 11.7 H K/mm3 (4.5-10.0) RBC 4.92 M/mm3 (4.6-6.20) Hgb 14.8 g/dL (14.0-18.0) Hct 43.2 % (42.0-52.0) MCV 87.8 fl (80-100) MCH 30.1 pg (26-34) MCHC 34.3 g/dl (32-36) RDW 13.2 % (11.5-14.5) Plt Count 248 k/mm3 (150-375) MPV 9.8 fl (7.4-10.4) Immature Gran % (Auto) 0.3 % (0-0.5) Neut % (Auto) 86.5 H % (45.5-73.1) Lymph % (Auto) 6.3 L % (18.3-44.2) [place] % (Auto) 5.8 % (2.6-8.5) Eos % (Auto) 0.8 % (0-4.4) Baso % (Auto) 0.3 % (0.2-1.2) Lymph # (Auto) 0.73 L K/mm3 (0.9-3.2) [place] # (Auto) 0.7 H K/mm3 (0.1-0.6) Eos # (Auto) 0.1 K/mm3 (0-0.3) Baso # (Auto) 0.0 K/mm3 (0.0-0.1) Abs Immat Gran (auto) 0.04 H K/mm3 (0.00-0.031) Absolute Neuts (auto) 10.1 H K/mm3 (1.3-6.7) Absolute Nucleated RBC 0.000 K/mm3 (0.0-0.012) Nucleated RBC % 0.0 % (0.0-0.2) PT 20.1 H Seconds (11.1-14.7) INR 1.6 APTT 33.4 Seconds (22.3-36.8) D-Dimer 0.35 ug/mL (<0.48) Sodium 135 L mmol/L (137-145) Potassium 3.8 mmol/L (3.4-5.0) Chloride 99 mmol/L (98-107) Carbon Dioxide 28 mmol/L (22-30) Anion Gap 8 mmol/L (4-12) BUN 18 mg/dL (9-20) Creatinine 1.20 mg/dL (0.7-1.3) Estim Creat Clear Calc 84 ml/min Estimated GFR > 60 (59 - ) Glucose 319 H mg/dL (65-110) POC Capillary Glucose Lactic Acid Calcium 9.3 mg/dL (8.4-10.2) Total Bilirubin 0.7 mg/dL (0.2-1.3) AST 20 U/L (17-59) ALT 18 U/L (6-50) Alkaline Phosphatase 90 U/L (38-126) Troponin I < 0.012 ng/mL (0.000-0.034) NT-Pro-B Natriuret Pep 1000 H pg/mL (19.9-100) Total Protein 7.0 g/dL (6.3-8.2) Albumin 4.6 g/dL (3.5-5.1) Amylase Lipase 122 U/L (23-300) Procalcitonin 08/19/23 08/19/23 08/19/23 01:32 04:28 04:28 WBC 9.7 K/mm3 (4.5-10.0) RBC 4.88 M/mm3 (4.6-6.20) Hgb 14.7 g/dL (14.0-18.0) Hct 43.4 % (42.0-52.0) MCV 88.9 fl (80-100) MCH 30.1 pg (26-34) MCHC 33.9 g/dl (32-36) RDW 13.1 % (11.5-14.5) Plt Count
[2023-08-19] MEDS: BUPIVACAINE/EPINEPHRINE 0.5% 30 ML VIAL INFILTRATE (16:21)
--- NOTE | 2023-08-19 16:47 | P.OP_ITS ---
Procedure Note - Detailed Date of Procedure 08/19/23 Pre-op Diagnosis acute cholecystitis Post-op Diagnosis Same Procedure Performed Laparoscopic cholecystectomy Surgeon Key Simmons MD Anesthesia General Indications 67-year-old male presenting with acute cholecystitis. Findings Cholecystitis with cholelithiasis Description of Procedure The patient was taken to the operating room placed in the supine position. After adequate induction of general anesthesia, the patient was prepped and draped in normal sterile fashion. A time-out was then performed to verify the patient's identity as well as the procedure being performed. I then made a 5 mm incision in the infraumbilical region. Through this, a Veress needle was placed into the peritoneal cavity and CO2 gas was then insufflated. After adequate pneumoperitoneum was achieved, the Veress needle was removed and a 5 mm optiview trocar was placed through this incision under direct visualization. I then placed the laparoscope through this trocar site and under direct visualization placed a further 12 mm subxiphoid port as well as 2 additional 5 mm ports in the right upper abdomen. The gallbladder was then identified and was noted to be inflamed and distended. I was able to place a grasper at the dome of the gallbladder and this was retracted anterior and cephalad up over the liver. A 2nd retractor was then placed at the infundibulum and retracted laterally, this allowed visualization of the triangle of [place]ot. I then was able to visualize the cystic duct in its entirety from its proximal insertion into the gallbladder, to its distal junction with the common hepatic/common bile duct junction. At this point, I carefully skeletonized the proximal cystic duct with the [place] dissector. I then clipped and transected the proximal cystic duct. Next I visualized the cystic artery. Again the artery was skeletonized, clipped, and transected. I then used the Bovie cautery to take down the peritoneal attachments of the gallbladder off the liver bed. This was somewhat difficult given the amount of inflammation in the posterior space. Once the gallbladder specimen was completely detached, an endo-pouch was placed through t he 12 mm port site. I then placed the gallbladder specimen into the Endo pouch and removed the endo-pouch from the 12 mm port site. The specimen will now be sent to pathology for further review. I then copiously irrigated the right upper quadrant. Hemostasis was noted in the liver bed, the clips were noted to be in good position on both the cystic duct stump and the cystic artery stump. No other pathology was noted in the right upper quadrant. I then moved the laparoscope to the subxiphoid port. No iatrogenic injury or other pathology was noted in the lower abdomen. I then closed the 12 mm trocar site under direct visualization using the Gabe cone and 0 Vicryl suture. At this point, the abdomen was desufflated and all ports removed. All port sites were then closed with 4.O Monocryl subcuticular sutures. Dermabond was placed on each incision. The patient tolerated the procedure well, was extubated in the operating room postoperative and will be transferred to the recovery room in stable condition Estimated Blood Loss 10 Drains No Packing No Pathology Yes Complications No immediate complications Condition Stable Disposition PACU [facility] Billing Surgery - Charge Forward: Surgery Billing
[2023-08-19] MEDS: LACTATED RINGERS 1,000 ML 30 ML IV CONT (16:53)
[2023-08-19 17:00] LABS: Glucose Point of Care 249 mg/dl (65-105)
[2023-08-19] MEDS: HYDROmorphone HCL INJ (*CRX) 1 MG/ML SYR 0.25 MG IV PUSH ×5 (17:06→17:38)
--- NOTE | 2023-08-19 17:35 | SUR.PHASEI ---
1735- Call to TAYLOR Roberts for patient's HR and BP. Patient AFIB low 100's to 120's with BP of 140's over 80's. Per FERRY OPERATOR no new orders at this time with patient's oral Cardizem due at 1700.
[2023-08-19] MEDS: INSULIN ASPART (*BKC) 100 UNITS/ML SUB-Q (18:13)
--- NOTE | 2023-08-19 19:35 | ECG_ITS ---
SEE SCANNED COPY FOR CONFIRMED REPORT MTDD
[2023-08-19] MEDS: dilTIAZem HCl INJ 25 MG/5 ML VIAL 10 MG IV PUSH ×2 (19:51→21:29)
[2023-08-19] MEDS: MONTELUKAST SODIUM 10 MG TABLET PO (19:54)
[2023-08-19 20:54] LABS: Hematocrit 40.1 % (42.0-52.0); Hemoglobin 13.5 g/dL (14.0-18.0); Mean Corpuscular HGB Conc 33.7 g/dl (32-36); Mean Corpuscular Hemoglobin 29.9 pg (26-34); Mean Corpuscular Volume 88.7 fl (80-100); Mean Platelet Volume 10.3 fl (7.4-10.4); Platelet Count Result 195 k/mm3 (150-375); Red Blood Count 4.52 M/mm3 (4.6-6.20); Red Cell Distribution Width 13.1 % (11.5-14.5); White Blood Count 9.6 K/mm3 (4.5-10.0)
[2023-08-19 21:14] LABS: Alanine Aminotransferase 21 U/L (6-50); Albumin Level 4.1 g/dL (3.5-5.1); Alkaline Phosphatase 79 U/L (38-126); Anion Gap 10 mmol/L (4-12); Aspartate Amino Transferase 25 U/L (17-59); Bilirubin,Total 0.9 mg/dL (0.2-1.3); Blood Urea Nitrogen 16 mg/dL (9-20); Calcium 8.6 mg/dL (8.4-10.2); Carbon Dioxide 21 mmol/L (22-30); Chloride 103 mmol/L (98-107); Estimated CRCL calculation 97 ml/min; Estimated Glomerular Filt Rate > 60; Glucose 380 mg/dL (65-110); Magnesium 2.1 mg/dL (1.6-2.3); Potassium 4.5 mmol/L (3.4-5.0); Sodium 134 mmol/L (137-145)
[2023-08-19 21:15] LABS: Band Neutrophils Percent 5 % (0-6); Lymphocytes Absolute Manual 0.19 K/mm3 (1.1-4.5); Monocytes Absolute Manual 0.09 K/mm3 (0.1-0.90); Monocytes Percent Manual 1 % (3-9); Neutrophils Absolute Manual 9.31 K/mm3 (1.3-6.7); Neutrophils Percent Manual 92 % (46-73); Total Cells Counted 100
[2023-08-19 21:16] LABS: Platelet Estimate Adequate (Adequate); Schistocytes None Seen
[2023-08-19 21:25] LABS: Troponin I < 0.012 ng/mL (0.000-0.034)
--- NOTE | 2023-08-19 21:34 | P.PNCROSS_ITS ---
Event Note Event Note Event Note: Just after returning from operative suite, notified by nursing team that the pa myrtle entered AFib during surgery. Reported he was given oral diltiazem during that time. Patient evaluated in the hallway of [address] [place] [address] as he was enthusiastic to walk around and was looking fantastic post surgery. Exam unremarkable aside from him being slightly short winded from his walk. Advised the patient to lay in bed as we will administer medications that can drop his blood pressure and he obliged. Telemetry demonstrating AFib with RVR in the 130s. Blood pressure acceptable. Patient given diltiazem 10 mg IV x1 and on re-examination the patient's blood pressure was still acceptable and his heart rate now in the 110s. He was seen thereafter lying flat in his bed in a slumber. Repeat diltiazem 10 mg IV x1 given and advise nursing if remains with high RVR we can move him to IMU although he appears stable at the moment. Serum studies during the event revealed potassium of 4.5 magnesium 2.1 and troponin 0.012. Twelve lead EKG demonstrating AFib with RVR without acute ischemic changes.
[2023-08-19 21:59] LABS: Glucose Point of Care 366 mg/dl (65-105)
[2023-08-19] MEDS: SODIUM CHLORIDE 0.9% IV 1,000 ML 100 ML IV CONT (23:24)
[2023-08-20] VITALS (13 sets, daily range): BP systolic 104–138; BP diastolic 64–86; PULSE 90–124; RESP 18–24; TEMP 36.4–37.3; O2SAT 94–97
[2023-08-20] MEDS: metroNIDAZOLE 500 MG/ISO 100ML 500 MG/100 ML BAG 100 MG IVPB ×3 (05:35→18:26)
[2023-08-20 05:54] LABS: Appearance Urine Clear (Clear); Bacteria Urine None Seen /hpf; Bilirubin Urine Negative (Negative); Blood Urine 3+ (Negative); Color Urine Yellow (Yellow); Glucose Urine UA 3+ mg/dL (Negative); Ketones Urine 2+ mg/dL (Negative); Leukocyte Esterase Ur Negative LEU/UL (Negative); Nitrate Urine Negative (Negative); Non Pathogenic Casts 0-2; Protein Urine Negative (Negative); Squamous Epithelial Cell Urine None Seen /hpf (Few); Urobilinogen Urine 0.2 mg/dL (<2.0); WBC Urine 0-5 /hpf (0-3); pH Urine 5.5 (5.0-9.0)
[2023-08-20 06:02] LABS: Specific Grav Ur 1.032 (1.001-1.035)
[2023-08-20 06:03] LABS: Add Urine Microscopic? YES
[2023-08-20 07:34] LABS: Glucose Point of Care 374 mg/dl (65-105)
[2023-08-20] MEDS: INSULIN ASPART (*BKC) 100 UNITS/ML SUB-Q ×4 (08:10→18:28)
[2023-08-20] MEDS: dilTIAZem HCL CD 180 MG CAP.24HR PO ×2 (08:11→18:26)
--- NOTE | 2023-08-20 11:13 | PM.IMPN ---
Progress Note: A&P Assessment and Plan (1) Afib: Code(s): I48.91 - Unspecified atrial fibrillation Status: Acute Assessment and Plan: Patient has pAFib and went into AFib post-operatively. Oral Diltiazem resumed and he did receive IV Diltiazem overnight. He has been compliant with his Xarelto with last dose on 08/16. BP soft and HR <115 at rest but higher when moving around. Add oral metoprolol to reduce rate. May need Amio (2) Cholecystitis: Code(s): K81.9 - Cholecystitis, unspecified Status: Acute Assessment and Plan: Right upper quadrant ultrasound normal GB and no GS. General surgery consulted. Clinically felt the patient had acute on chronic cholecystitis. Lipase and LFTs normal. Patient underwent laproscopic cholecystectomy on 08/19 and toerlated the procedure well. Routine post-op care (3) Right upper quadrant pain: Code(s): R10.11 - Right upper quadrant pain Status: Acute Assessment and Plan: Given the presence of patient's right upper quadrant abdominal pain and associated symptoms with food, th patient's clinical picture is most likely consistent with acute on chronic cholecystitis. As above (4) SIRS (systemic inflammatory response syndrome): Code(s): R65.10 - Systemic inflammatory response syndrome (SIRS) of non-infectious origin without acute organ dysfunction Status: Acute Assessment and Plan: Patient with elevated white count, mildly elevated temp and elevated lactic consistent with SIRS criteria. Probably sepsis related to acute cholecystitis Operative note showed GB was 'inflamed and distended' Started on empiric antibiotic therapy with Rocephin and Flagyl after BCx obtained BCx NGTD WBC normal. Continue abx now (5) Atypical chest pain: Code(s): R07.89 - Other chest pain Status: Acute Assessment and Plan: Patient is atypical chest pain with negative cardiac enzymes. CTA chest showing no PE [place] CP related to acute cholecystitis As above (6) Type 2 diabetes mellitus with hyperglycemia, without long-term current use of insulin: Code(s): E11.65 - Type 2 diabetes mellitus with hyperglycemia Status: Acute Assessment and Plan: The patient's blood glucose was reviewed on 08/19 Glucose remains poorly controlled. Only onmetformin at home. Continue AccuCheks covering with sliding scale. Hypoglycemia protocol available as needed. Add Lantus and meal time insulin. Check A1c. Continue to follow (7) Obstructive sleep apnea on CPAP: Code(s): G47.33 - Obstructive sleep apnea (adult) (pediatric) Status: Acute Assessment and Plan: Patient is complaint with CPAP Continue the same Plan DVT prophylaxis - SCD. Resume Xarelto when okay with surgery Code status - full Subjective Date/time seen: 08/20/23 11:13 Interval history: 67yo male with DM, CATALINA, pAFib and HTN here for abdominal and chest pain. He feels well. Event overnight noted. No CP. He can not feel when he is in AFib. He has been told he goes in/out AFib. Abd pain well controled. passing flatus. Tolerating diet. Exam Narrative: AF 97.6 138/86 110 18 94% ra Gen - NARD Chest - CTA bilaterally, nml RR CV - irregularly irregular Abd - Soft, obese, incisions clean/dry/intact Ext - No pedal edema Psych - Nml mood and affect Skin - Warm and dry Objective Data Vital Signs Vital Signs: Vital Signs - 24 hr 08/19/23 13:53 08/19/23 12:00 08/19/23 16:53 Temperature 98.8 F 98.6 F Pulse Rate 97 104 H 119 H Respiratory Rate 18 22 H Blood Pressure 120/62 155/99 H Pulse Oximetry 95 92 Oxygen Delivery Simple Face Mask Oxygen Flow Rate 10 08/19/23 17:00 08/19/23 17:15 08/19/23 17:25 Temperature Pulse Rate 115 H 114 H 111 H Respiratory Rate 20 21 H 20 Blood Pressure 155/96 H 151/94 H 151/77 H Pulse Oximetry 96 96 96 Oxygen Delivery Simple Face Mask Simple Face M
[2023-08-20 11:27] LABS: Glucose Point of Care 479 mg/dl (65-105)
[2023-08-20] MEDS: METOPROLOL TARTRATE 25 MG TABLET PO (12:03)
[2023-08-20] MEDS: INSULIN ASPART (*BKC) 100 UNITS/ML 8 UNITS SUB-Q ×2 (12:04→18:28)
--- NOTE | 2023-08-20 12:12 | PM.PNGS ---
Progress Note: A&P Assessment and Plan (1) Cholecystitis with cholelithiasis: Code(s): K80.10 - Calculus of gallbladder with chronic cholecystitis without obstruction Status: Acute Assessment and Plan: Postop day 1 laparoscopic cholecystectomy and doing well. He is able for discharge from a surgical standpoint, when primary service feels he is medically stable. Follow-up with Dr. Simmons in 2 weeks. We will sign off at this point. Call with any surgical questions or concerns. (2) Afib: Code(s): I48.91 - Unspecified atrial fibrillation Status: Acute Assessment and Plan: Okay from a surgical standpoint to restart anticoagulation Plan I have discussed the patient's case and plan of care with Dr. Simmons. Subjective Subjective Date/Time Seen: 08/20/23 10:12 Post Op day: 1 (Laparoscopic cholecystectomy) Patient reports: feels better, voiding w/o difficulty, flatus, no bowel movement and afebrile Interval history: Patient with AFib RVR after surgery. He is currently on telemetry and heart rate is still in the 120s. Nursing has him on bed rest due to his heart rate. The patient reports feeling really well overall. He is not having any abdominal pain. He reports some mild incisional soreness at the epigastric incision at times with movement, but no abdominal pain. He is tolerating his diet without any nausea or vomiting. He was walking after surgery in the halls and doing well before they put him on bed rest. No other complaints at this time. Exam Const: General: comfortable and no acute distress Resp: Effort & Inspection: normal respiratory effort Auscultation: clear to auscultation bilaterally Cardio: Rate: tachycardic Rhythm: abnormal rhythm irregularly irregular GI: Inspection: non-distended and incision (incisions dry and intact) GI Palp: Yes Soft to palpation, No Tenderness to palpation present (GI) and No Guarding due to palpation present (GI) Auscultation: normal bowel sounds Psych: Mental Status: mental status grossly normal Insight: Good insight present (Psych) Objective Data Vital Signs Vital Signs: Vital Signs - 24 hr 08/19/23 13:53 08/19/23 16:53 08/19/23 17:00 Temperature 98.8 F 98.6 F Pulse Rate 97 119 H 115 H Respiratory Rate 18 22 H 20 Blood Pressure 120/62 155/99 H 155/96 H Pulse Oximetry 95 92 96 Oxygen Delivery Simple Face Mask Simple Face Mask Oxygen Flow Rate 10 10 08/19/23 17:15 08/19/23 17:25 08/19/23 17:40 Temperature 97.6 F Pulse Rate 114 H 111 H 120 H Respiratory Rate 21 H 20 16 Blood Pressure 151/94 H 151/77 H 148/79 H Pulse Oximetry 96 96 92 Oxygen Delivery Simple Face Mask Simple Face Mask Nasal Cannula Oxygen Flow Rate 10 10 2 08/19/23 17:50 08/19/23 18:10 08/19/23 18:25 Temperature 97.5 F L 98.2 F 98.6 F Pulse Rate 116 H 106 H 136 H Respiratory Rate 16 18 18 Blood Pressure 142/76 H 133/73 123/69 Pulse Oximetry 94 91 93 Oxygen Delivery Nasal Cannula Oxygen Flow Rate 2 08/19/23 18:55 08/19/23 19:35 08/19/23 20:00 Temperature 97.6 F Pulse Rate 112 H Respiratory Rate 18 Blood Pressure 123/68 160/90 H Pulse Oximetry 93 93 Oxygen Delivery Nasal Cannula Oxygen Flow Rate 2 08/19/23 20:00 08/19/23 21:23 08/19/23 22:00 Temperature 97.7 F Pulse Rate 113 H 120 H Respiratory Rate 21 H 20 Blood Pressure 130/72 Pulse Oximetry 96 Oxygen Delivery Autopap Oxygen Flow Rate 08/20/23 02:23 08/20/23 00:00 08/20/23 04:00 Temperature Pulse Rate 118 H 109 H Respiratory Rate 24 H Blood Pressure Pulse Oximetry Oxygen Delivery Autopap Oxygen Flow Rate 08/20/23 06:00 08/20/23 08:04 08/20/23 08:00 Temperature 97.6 F 98.8 F Pulse Rate 110 H 120 H Respiratory Rate 18 18 Blood Pressure 138/86 104/64 Pulse Oximetry 96 94 96 Oxygen Delivery Room Air Oxygen Flow Rate 08/20/23 12:03 Temperature Pulse Rate 124 H Respiratory Rate Blood Pressure Pulse Ox
--- NOTE | 2023-08-20 12:22 | WPDANESPN ---
Anes - Prog Note Post-Op Date/Time: 08/20/23 12:22 Cardiovascular status: normal Respiratory status: normal Airway patency: baseline Mental status: baseline Post-Op hydration status: normal Vital Signs: Last Vital Signs Temp 37.1 C 08/20/23 08:00 Pulse 124 H 08/20/23 12:03 Resp 18 08/20/23 08:00 BP 104/64 08/20/23 08:00 Pulse Ox 94 08/20/23 08:04 O2 Del Method Room Air 08/20/23 08:04 O2 Flow Rate 2 08/19/23 20:00 Pain Score (VAS): 06/15 I/O: Intake & Output 08/19/23 08/20/23 08/20/23 23:59 07:59 15:59 Intake Total 1251.7 770.0 240 Output Total 450 600 Balance 1251.7 320.0 -360 Laboratory Tests 08/19/23 20:32 08/19/23 20:32 08/19/23 08/19/23 08/19/23 12:25 16:57 20:32 WBC 9.6 RBC 4.52 L Hgb 13.5 L Hct 40.1 L MCV 88.7 MCH 29.9 MCHC 33.7 RDW 13.1 Plt Count 195 MPV 10.3 Immature Gran % (Auto) Not Reportable Neut % (Auto) Not Reportable Lymph % (Auto) Not Reportable [place] % (Auto) Not Reportable Eos % (Auto) Not Reportable Baso % (Auto) Not Reportable Lymph # (Auto) Not Reportable [place] # (Auto) Not Reportable Eos # (Auto) Not Reportable Baso # (Auto) Not Reportable Abs Immat Gran (auto) Not Reportable Absolute Neuts (auto) Not Reportable Absolute Nucleated RBC Not Reportable Total Counted 100 Neutrophils % (Manual) 92 H Band Neutrophils % 5 Lymphocytes % (Manual) 2.0 L Monocytes % (Manual) 1 L Nucleated RBC % Not Reportable Abs Neuts (Manual) 9.31 H Abs Lymphs (Manual) 0.19 L Abs Monocytes (Manual) 0.09 L Platelet Estimate Adequate Schistocytes None seen Sodium 134 L Potassium 4.5 Chloride 103 Carbon Dioxide 21 L Anion Gap 10 BUN 16 Creatinine 1.00 Estim Creat Clear Calc 97 Estimated GFR > 60 Glucose 380 H POC Capillary Glucose 249 H 249 H Calcium 8.6 Magnesium 2.1 Total Bilirubin 0.9 AST 25 ALT 21 Alkaline Phosphatase 79 Troponin I < 0.012 Total Protein Albumin Urine Color Urine Appearance Urine pH Ur Specific [place] Urine Protein Urine Glucose (UA) Urine Ketones Ur Blood (Man) Urine Nitrate Urine Bilirubin Urine Urobilinogen Leukocyte Esterase Rfl Urine RBC Urine WBC Ur Squamous Epith Cells Urine Bacteria Urine Casts 08/19/23 08/19/23 08/20/23 20:32 21:03 05:38 WBC RBC Hgb Hct MCV MCH MCHC RDW Plt Count MPV Immature Gran % (Auto) Neut % (Auto) Lymph % (Auto) [place] % (Auto) Eos % (Auto) Baso % (Auto) Lymph # (Auto) [place] # (Auto) Eos # (Auto) Baso # (Auto) Abs Immat Gran (auto) Absolute Neuts (auto) Absolute Nucleated RBC Total Counted Neutrophils % (Manual) Band Neutrophils % Lymphocytes % (Manual) Monocytes % (Manual) Nucleated RBC % Abs Neuts (Manual) Abs Lymphs (Manual) Abs Monocytes (Manual) Platelet Estimate Schistocytes Sodium Potassium Chloride Carbon Dioxide Anion Gap BUN Creatinine Estim Creat Clear Calc Estimated GFR Glucose POC Capillary Glucose 366 H Calcium Magnesium Total Bilirubin AST ALT Alkaline Phosphatase Troponin I < 0.012 Total Protein 7.0 Albumin 4.1 Urine Color Yellow Urine Appearance Clear Urine pH 5.5 Ur Specific [place] 1.032 Urine Protein Negative Urine Glucose (UA) 3+ H Urine Ketones 2+ H Ur Blood (Man) 3+ H Urine Nitrate Negative Urine Bilirubin Negative Urine Urobilinogen 0.2 Leukocyte Esterase Rfl Negative Urine RBC 11-20 H Urine WBC 0-5 Ur Squamous Epith Cells None seen Urine Bacteria None seen Urine Casts 0-2 08/20/23 08/20/23 07:30 11:25 WBC RBC Hgb Hct MCV MCH MCHC RDW Plt Count MPV Immature Gran % (Auto)
[2023-08-20 12:38] LABS: Basophils Percent Auto 0.3 % (0.2-1.2); Eosinophils Percent Auto 0.2 % (0-4.4); Hematocrit 37.9 % (42.0-52.0); Hemoglobin 12.9 g/dL (14.0-18.0); Immature Granulocyte Absolute 0.05 K/mm3 (0.00-0.031); Immature Granulocyte Percent A 0.4 % (0-0.5); Lymphocytes Absolute Auto 0.28 K/mm3 (0.9-3.2); Lymphocytes Percent Auto 2.4 % (18.3-44.2); Mean Corpuscular Hemoglobin 30.1 pg (26-34); Mean Corpuscular Volume 88.6 fl (80-100); Mean Platelet Volume 10.5 fl (7.4-10.4); Monocytes Absolute Auto 0.6 K/mm3 (0.1-0.6); Monocytes Percent Auto 4.8 % (2.6-8.5); Neutrophils Absolute Auto 10.6 K/mm3 (1.3-6.7); Neutrophils Percent Auto 91.9 % (45.5-73.1); Platelet Count Result 210 k/mm3 (150-375); Red Blood Count 4.28 M/mm3 (4.6-6.20); Red Cell Distribution Width 13.2 % (11.5-14.5); White Blood Count 11.6 K/mm3 (4.5-10.0)
[2023-08-20 12:47] LABS: Magnesium 2.1 mg/dL (1.6-2.3)
[2023-08-20 12:49] LABS: Alanine Aminotransferase 20 U/L (6-50); Albumin Level 3.8 g/dL (3.5-5.1); Alkaline Phosphatase 75 U/L (38-126); Anion Gap 12 mmol/L (4-12); Aspartate Amino Transferase 23 U/L (17-59); Bilirubin,Total 0.5 mg/dL (0.2-1.3); Blood Urea Nitrogen 21 mg/dL (9-20); Calcium 8.5 mg/dL (8.4-10.2); Carbon Dioxide 19 mmol/L (22-30); Chloride 102 mmol/L (98-107); Estimated CRCL calculation 91 ml/min; Estimated Glomerular Filt Rate > 60; Glucose 457 mg/dL (65-110); Potassium 4.3 mmol/L (3.4-5.0); Sodium 133 mmol/L (137-145)
[2023-08-20 12:50] LABS: Hemoglobin A1C 8.7 % (<5.7)
[2023-08-20 13:51] LABS: Thyroid Stimulating Hormone Reflex 0.342 uIU/mL (0.465-4.68)
[2023-08-20 14:47] LABS: Free T4 Free Thyroxine Reflex 1.73 ng/dL (0.78-2.19)
[2023-08-20 15:28] LABS: Total Triiodothyronine (T3) 0.66 NG/ML (0.97-1.69)
[2023-08-20 16:35] LABS: Glucose Point of Care 393 mg/dl (65-105)
[2023-08-20] MEDS: INSULIN GLARGINE (*BKC) 100 UNITS/ML 20 UNITS SUB-Q (20:55)
[2023-08-20] MEDS: MONTELUKAST SODIUM 10 MG TABLET PO (20:55)
[2023-08-20 21:29] LABS: Glucose Point of Care 391 mg/dl (65-105)
[2023-08-21] VITALS: PULSE 83
[2023-08-21] MEDS: metroNIDAZOLE 500 MG/ISO 100ML 500 MG/100 ML BAG 100 MG IVPB ×2 (00:10→05:33)
[2023-08-21 02:07] VITALS: RESP 20
[2023-08-21 04:00] VITALS: PULSE 83
[2023-08-21 06:06] VITALS: BP 118/69; PULSE 75; RESP 18; TEMP 37; O2SAT 96
[2023-08-21 06:48] LABS: Anion Gap 7 mmol/L (4-12); Blood Urea Nitrogen 19 mg/dL (9-20); Calcium 8.4 mg/dL (8.4-10.2); Carbon Dioxide 24 mmol/L (22-30); Chloride 103 mmol/L (98-107); Estimated CRCL calculation 100 ml/min; Estimated Glomerular Filt Rate > 60; Glucose 309 mg/dL (65-110); Potassium 4.2 mmol/L (3.4-5.0); Sodium 134 mmol/L (137-145)
[2023-08-21 07:31] LABS: Glucose Point of Care 336 mg/dl (65-105)
[2023-08-21] MEDS: INSULIN ASPART (*BKC) 100 UNITS/ML SUB-Q ×2 (08:07→12:45)
[2023-08-21] MEDS: INSULIN ASPART (*BKC) 100 UNITS/ML 8 UNITS SUB-Q ×2 (08:07→12:45)
[2023-08-21] MEDS: dilTIAZem HCL CD 180 MG CAP.24HR PO (08:09)
[2023-08-21 11:28] LABS: Glucose Point of Care 358 mg/dl (65-105)
--- NOTE | 2023-08-21 12:27 | PM.DS ---
DS: Admitting Diagnosis Discharge Date 08/22/2023 Admitting Diagnosis Chest pain DS: Discharge Diagnosis Discharge Diagnosis (1) Afib: Code(s): I48.91 - Unspecified atrial fibrillation Status: Acute Assessment and Plan: Patient has pAFib and went into AFib post-operatively. Oral Diltiazem resumed and he did receive IV Diltiazem overnight. He has been compliant with his Xarelto with last dose on 08/16. Pt was DC on amiodarone and xarelto for PAF (2) Cholecystitis: Code(s): K81.9 - Cholecystitis, unspecified Status: Acute Assessment and Plan: Right upper quadrant ultrasound normal GB and no GS. General surgery consulted. Clinically felt the patient had acute on chronic cholecystitis. Lipase and LFTs normal. Patient underwent laproscopic cholecystectomy on 08/19 and toerlated the procedure well. Routine post-op care pt is stable for DC (3) Right upper quadrant pain: Code(s): R10.11 - Right upper quadrant pain Status: Acute Assessment and Plan: Given the presence of patient's right upper quadrant abdominal pain and associated symptoms with food, th patient's clinical picture is most likely consistent with acute on chronic cholecystitis. As above (4) SIRS (systemic inflammatory response syndrome): Code(s): R65.10 - Systemic inflammatory response syndrome (SIRS) of non-infectious origin without acute organ dysfunction Status: Acute Assessment and Plan: Patient with elevated white count, mildly elevated temp and elevated lactic consistent with SIRS criteria. Probably sepsis related to acute cholecystitis Operative note showed GB was 'inflamed and distended' Started on empiric antibiotic therapy with Rocephin and Flagyl after BCx obtained BCx NGTD WBC normal. Continue abx now orally at home (5) Atypical chest pain: Code(s): R07.89 - Other chest pain Status: Acute Assessment and Plan: Patient is atypical chest pain with negative cardiac enzymes. CTA chest showing no PE [place] CP related to acute cholecystitis As above (6) Type 2 diabetes mellitus with hyperglycemia, without long-term current use of insulin: Code(s): E11.65 - Type 2 diabetes mellitus with hyperglycemia Status: Acute Assessment and Plan: The patient's blood glucose was reviewed on 08/19 Glucose remains poorly controlled. Only on metformin at home. Pt started on Lantus at home at night Lantus pen prescribed on DC (7) Obstructive sleep apnea on CPAP: Code(s): G47.33 - Obstructive sleep apnea (adult) (pediatric) Status: Acute Assessment and Plan: Patient is complaint with CPAP Continue the same DS: Summary Hospital Course Hospital Course: 67-year-old male with a past medical history of BPH, essential hypertension, morbid obesity, obstructive sleep apnea and paroxysmal atrial fibrillation who presented to the ER with chest pain.? Patient reports that his symptoms initially started around 15:30 yesterday.? The symptoms started a couple hours after he had eaten.? He then ate again around 17:00.? After that meal the patient's pain significantly increased.? Pain was 7/10 intensity at its worst.? He reports that his pain is currently 4/10 in intensity but spiked to a 7/10 intensity with palpation.? He reports a generalized tightness around distal lower chest that is constant but is worse with deep breathing.? He denied any known fevers or chills at home.? But at the time my evaluation the patient reports that he was actively cold and at that time he was mildly diaphoretic and hot to touch.? Temperature was 99.3?.? He reports that his stools have been smaller over the last 24 hours due to decreased appetite.? 67yo male with DM, CATALINA, pAFib and HTN here for abdominal and chest pain. Pt found to have GB disease Sp cholecystitis and lap jerson. Ok to Dc. For PAF xarelto and amiodarone started, for uncontrolled DM lant
[2023-08-21 14:00] VITALS: BP 120/60; PULSE 86; RESP 20; TEMP 36.6; O2SAT 96
[2023-08-21 15:00] VITALS: BMI 44.1
== END 2023-08-21 16:01 | disposition home or self-care (01) ==
LOC: ANHED 08-19 03:23 → ANHIMU 08-19 05:40 → ANH3MEDSUR 08-19 11:13 → ANHIMU 08-22 08:51
PROVIDERS: General Practice; Internal Medicine; Surgery; Admitting Provider Internal Medicine; Emergency Provider Emergency Medicine; PCP Family Medicine; Visit Provider Family Medicine
PROC: 0FT44ZZ Resection of Gallbladder, Percutaneous Endoscopic Approach (ICD-10-PCS; CPT 47562; principal; 2023-08-19 15:00)
DX: K81.1 Chronic cholecystitis (principal); I48.91 Unspecified atrial fibrillation; R07.89 Other chest pain; R00.0 Tachycardia, unspecified; R06.02 Shortness of breath; N40.0 Benign prostatic hyperplasia without lower urinary tract symptoms; I10 Essential (primary) hypertension; E11.65 Type 2 diabetes mellitus with hyperglycemia; G47.33 Obstructive sleep apnea (adult) (pediatric); Z99.89 Dependence on other enabling machines and devices; E66.01 Morbid (severe) obesity due to excess calories; Z68.41 Body mass index [BMI] 40.0-44.9, adult; Z90.79 Acquired absence of other genital organ(s); Z87.891 Personal history of nicotine dependence; F10.90 Alcohol use, unspecified, uncomplicated; Z79.01 Long term (current) use of anticoagulants; Z79.84 Long term (current) use of oral hypoglycemic drugs; Z79.899 Other long term (current) drug therapy
CPT/HCPCS: 47562; 36415; 71046; 71275; 76705; 80048; 80053; 81001; 82150; 82948; 83036; 83605; 83690; 83735; 83880; 84145; 84439; 84443; 84480; 84484; 85025; 85380; 85610; 85730; 87040; 88304; 93005; 96361; 96374; 99285; A9270; G0378; J0330; J0696; J1100; J1170; J1815; J1836; J2250; J2270; J2405; J2704; J3010; J7030; J7120; Q9967

== ENCOUNTER 2023-09-17 07:56 | Outpatient (CLI) | payer OTHER, SELFPAY ==
[2023-09-17 08:05] LABS: Basophils Absolute Auto 0.04 K/mm3 (0.00-0.10); Basophils Percent Auto 0.7 % (0.0-1.0); Eosinophils Absolute Auto 0.31 K/mm3 (0.02-0.50); Eosinophils Percent Auto 5.2 % (1.0-6.0); Hematocrit 43.2 % (37.0-46.0); Hemoglobin 14.4 g/dL (12.4-15.3); Immature Granulocyte Absolute 0.02 K/mm3 (0.00-0.00); Immature Granulocyte Percent A 0.3 % (0.0-0.0); Lymphocytes Absolute Auto 1.06 K/mm3 (1.10-4.50); Lymphocytes Percent Auto 17.7 % (18.0-42.0); Mean Corpuscular HGB Conc 33.3 g/dL (32-36); Mean Corpuscular Hemoglobin 29.7 pg (27.0-31.0); Mean Corpuscular Volume 89.1 fL (78.0-102.0); Mean Platelet Volume 10.5 fl (8.7-11.0); Monocytes Percent Auto 8.3 % (2.0-11.0); Neutrophils Absolute Auto 4.06 K/mm3 (1.70-7.20); Neutrophils Percent Auto 67.8 % (50.0-70.0); Platelet Count Result 255 K/mm3 (150-420); Red Blood Count 4.85 M/mm3 (4.70-6.10); Red Cell Distribution Width 13.1 % (11.6-14.4)
[2023-09-17 08:46] LABS: Alanine Aminotransferase 26 U/L (16-63); Alkaline Phosphatase 69 U/L (46-116); Anion Gap 11 mmol/L (4-12); Aspartate Amino Transferase 23 U/L (15-37); Bilirubin,Total 0.4 mg/dL (0.00-1.00); Blood Urea Nitrogen 18 mg/dL (7-18); Calcium 9.2 mg/dL (8.5-10.1); Carbon Dioxide 29 mmol/L (21-32); Chloride 100 mmol/L (98-108); Estimated Glomerular Filt Rate > 60; Glucose 188 mg/dL (70-99); Osmolality Calculated 296 mOsm/kg (285-295); Potassium 4.4 mmol/L (3.5-5.1); Sodium 140 mmol/L (136-145); Total Protein 7.3 g/dL (6.4-8.2)
== END 2023-09-17 07:57 | disposition home or self-care (01) ==
LOC: CHSLAB 07:58
PROVIDERS: PCP Family Medicine; Visit Provider Family Medicine
DX: E11.59 Type 2 diabetes mellitus with other circulatory complications (principal)
CPT/HCPCS: 36415; 80053; 85025

== ENCOUNTER 2025-01-13 11:26 | Outpatient (NON) | payer MEDICARE, SELFPAY ==
--- OUTSIDE RECORDS SUMMARY | 2024-04-05 04:00 | XMS_ITS ---
Author Organization [facility] Address [address] [place] [address] Care Team Providers Care Drupal Php Developer Name Role Phone KRUNAL Kothari Primary Care Provider [phone] Migration, Provider Unavailable Unavailable Allergies Allergen (clinical drug ingredient) Drug/Non Drug Allergy documented on EMR Reaction Allergy Type Onset Date Status Penicillin Unknown Drug Allergy 10/04/2020 Activ e REASON FOR VISIT EMR-[facility] Medications Medication SIG (Take, Route, Frequency, Duration) Notes Start Date End Date Status Vitamin D3 Ultra Strength 125 MCG (5000 UT) Capsule 1 Oral every day; Duration: 0 08/28/2023 Active cyanocobalamin(vit B-12)(bulk) miscellaneous; Duration: 0 *Reorder from [facility] for eRx and Interaction Alerts* 01/16/2024 Active metFORMIN HCl ER 500 MG Tablet Extended Release 24 Hour Oral; Duration: 90 11/01/2023 10/25/2024 Active dilTIAZem HCl 360 mg Capsule(s) 1 BY MOUTH every day; Duration: 90 *Pick strength-form from [facility] for eRX* 02/18/2024 05/17/2024 Active Lantus SoloStar 100 UNIT/ML Solution Pen-injector Subcutaneous; Duration: 75 12/20/2023 10/14/2024 Active Spironolactone 25 MG Tablet 1 Oral every day; Duration: 90 03/17/2024 06/14/2024 Active Magnesium 250 MG Tablet Oral; Duration: 0 10/04/2020 Active Montelukast Sodium 10 MG Tablet Oral; Duration: 90 03/17/2024 06/14/2024 Active Trulicity 0.75 MG/0.5ML Solution Pen-injector Subcutaneous; Duration: 02/18/2024 05/11/2024 Active Tadalafil 5 MG Tablet 1 Oral every day; Duration: 03/16/2024 06/13/2024 Active Valsartan-hydroCHLORO thiazide 160-12.5 MG Tablet 1 Oral every day; Duration: 01/13/2024 01/06/2025 Active Multivitamin oral; Duration: 0 *Pick strength-form from [facility] for eRX* 08/28/2023 Active Rosuvastatin Calcium 10 MG Tablet 1 Oral every day; Duration: 02/18/2024 05/17/2024 Active Xarelto 20 MG Tablet 1 Oral every day; Duration: 09/16/2023 09/09/2024 Active Social History Social History Additional Details Category Social Info Options Details Migrated Social History Migrated Social History Marital status: Encounters Encounter Location Date Provider Diagnosis [facility] [address] [place] [address] 04/05/2024 Provider Migration Plan Of Treatment Next Appt Details Provider Name:KRUNAL Kothari , 02/12/2025 01:30:00 PM, [facility] [address] [place], [address], [id number] Provider Name:Stephanie mars, 03/23/2025 09:00:00 AM, [facility] [address], [place], [address], [phone] Provider Name:KRUNAL Kothari , 08/05/2025 10:30:00 AM, [facility] [address], [place], [address], [phone] Progress Notes * Kleber MCKINNONOB:08/1955 (69 yo M)Acc No.[id number]:04/05/2024 Patient: Duncan GARCIAKleber :1955 A ge:68 Y S ex:Male Phone: Address:[facility] [employer] [place], [address] Subjective: * Chief Complaints: * E MR-[facility] * Surgical History: (86291) PROSTATECTOMY (TURP) EGD 2010 Colonoscopy, flexible, proximal to splenic flexure; diagnostic, with or without collection of specim ,notes : repeat 3-5 yrs 2011 cholecystecomy ,notes : [facility] - Dr Key Simmons 08/19/23 * Social History: M igrated Social History: M igrated Social History: Marital status:. * Medications: T akingMultivitamin oral , Notes to Pharmacist: *Pick strength-form from [facility] for eRX*Lantus SoloStar 100 UNIT/ML Solution Pen-injector Subcutaneous , stop date 10/14/2024Xarelto 20 MG Tablet 1 Oral every day , stop date 09/09/2024Montelukast Sodium 10 MG Tablet Oral , stop date 06/14/2024Rosuvastatin Calcium 10 MG Tablet 1 Oral every day , stop date 05/17/2024Tadalafil 5 MG Tablet 1 Oral every day , stop date 06/13/2024Trulicity 0.75 MG/0.5ML Solution Pen-injector Subcutaneous , stop date 05/11/2024yanocobalamin(vit B-12)(bulk) miscellaneous , Notes to Pharmacist: *Reorder from [facility] for eRx and Interaction Alerts*Magnesium 250 MG Tablet Oral Vitamin D3 Ultra Strength 125 MCG (5000 UT) Capsule 1 Oral every day Spironolactone 25 MG Tablet 1 Oral every day , stop date 06/14/2024dilTIAZem HCl 360 mg Capsule(s) 1 BY MOUTH every day , stop date 05/17/2024, Notes to Pharmacist: *Pick strength- form from [facility] for eRX*Valsartan-hydroCHLOROthiazide 160-12.5 MG Tablet 1 Oral every day , stop date 01/06/2025metFORMIN HCl ER 500 MG Tablet Extended Release 24 Hour Oral , stop date 10/25/2024Taking Multivitamin oral , Notes to Pharmacist: *Pick strength-form from [facility] for eRX*Taking Lantus SoloStar 100 UNIT/ML Solution Pen-injector Subcutaneous , stop date 10/14/2024Taking Xarelto 20 MG Tablet 1 Oral every day , stop date 09/09/2024Taking Montelukast Sodium 10 MG Tablet Oral , stop date 06/14/2024Taking Rosuvastatin Calcium 10 MG Tablet 1 Oral every day , stop date 05/17/2024Taking Tadalafil 5 MG Tablet 1 Oral every day , stop date 06/13/2024Taking Trulicity 0.75 MG/0.5ML Solution Pen-injector Subcutaneous , stop date 05/11/2024Taking cyanocobalamin(vit B-12)(bulk) miscellaneous , Notes to Pharmacist: *Reorder from [facility] for eRx and Interaction Alerts*Taking Magnesium 250 MG Tablet Oral Taking Vitamin D3 Ultra Strength 125 MCG (5000 UT) Capsule 1 Oral every day Taking Spironolactone 25 MG Tablet 1 Oral every day , stop date 06/14/2024Taking dilTIAZem HCl 360 mg Capsule(s) 1 BY MOUTH every day , stop date 05/17/2024, Notes to Pharmacist: *Pick strength-form from [employer] for eRX*Taking Valsartan-hydroCHLOROthiazide 160-12.5 MG Tablet 1 Oral every day , stop date 01/06/2025Taking metFORMIN HCl ER 500 MG Tablet Extended Release 24 Hour Oral , stop date 10/25/2024 * Allergies: P enicillin: Allergy - Onset Date 10/04/2020 Objective: Past Vitals:* 01/13/2024 BP: 132/68 mm Hg, HR: 81 /mi n, Oxygen sat %: 97 %, Wt: 328.80 lbs, Wt-k.14 kg * 07/24/2023 BP: 138/72 mm Hg, HR: 115 /m in, Oxygen sat %: 98 %, Wt: 330.61 lbs, Wt-k.96 kg * * Date:
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
[2025-01-13 12:04] LABS: Add Urine Microscopic? YES; Appearance Urine Cloudy (Clear); Glucose Urine UA Negative (Negative); Leukocyte Esterase Ur 3+ LEU/UL (Negative); Nitrate Urine Negative (Negative); Non Pathogenic Casts 0-2; Specific Grav Ur 1.014 (1.001-1.035)
--- OUTSIDE RECORDS SUMMARY | 2025-01-13 12:36 | XMS_ITS | Patient Health Record ---
Author Organization [facility] Address [address] [place] [address] Care Team Providers Care Market News Reporter Name Role Phone KRUNAL Kothari Primary Care Provider [phone] Stephanie Blount Unavailable [phone] Migration, Provider Unavailable Unavailable Allergies Allergen (clinical drug ingredient) Drug/Non Drug Allergy documented on EMR Reaction Allergy Type Onset Date Status cefazolin ceFAZolin rash, itchy, throat swelling Drug Allergy Active Penicillin Unknown Drug Allergy 10/04/2020 Activ e Results Component Value Reference Range Flag Notes Hemoglobin A1c {Glycosylated } Reviewed date:08/04/2024 09:51:17 PM Interpretation: Performing Lab: Notes/Report: Test Performed by: [address] [address] Cloud Consultant: Bryan Aguila DO Hemoglobin A1c 7.1 <=6.4 % H Hemoglobin A1C < 5.7% = Normal 5.7-6.4% = Increased risk for future diabetes >=6.5% = Diabetes eAvg Glucose 157 <=117 mg/dL H eAG Reference Range <117 mg/dL = Normal 117-137 mg/dL = Increased Risk For Future Diabetes >137 mg/dL = Diabetes Vitamin D 25 Hydroxy Reviewed date:08/04/2024 09:51:17 PM Interpretation: Performing Lab: Notes/Report: Test Performed by: [address] [address] Cloud Consultant: Bryan Aguila DO Vitamin D 25 OH 73 30-100 ng/mL Vitamin D25 Interpretation: Deficient: <= 20 ng/mL Insufficient: 21-29 ng/mL Sufficient: 30-100 ng/mL Upper Safety Limit: >100 ng/mL CBC w Auto Diff Reviewed date:08/04/2024 09:51:17 PM Interpretation: Performing Lab: Notes/Report: Test Performed by: [address] [address] Cloud Consultant: Bryan Aguila DO WBC 7.5 4.0-11.7 K/mcL RBC 4.86 4.28-5.56 x10*6/mcL Hgb 15.2 13.0-17.0 g/dL Hct 43.0 38.1-48.9 % MCV 88.4 83.4-98.1 fL MCH 31.3 27.0-34.2 pg MCHC 35.3 31.8-35.3 g/dL RDW 13.8 12.0-16.4 % Platelets 269 149-393 K/mcL MPV 8.3 7.0-11.0 fL Neutro Auto 76.6 45.3-79.0 % Lymph Auto 15.1 11.8-45.9 % [place] Auto 6.7 4.4-12.0 % Eosinophil Auto 0.9 0.0-6.3 % Basophil Auto 0.7 0.2-1.6 % Neutro Absolute 5.7 2.4-8.4 x10*3/mcL Lymph Absolute 1.1 0.8-3.7 x10*3/mcL [place] Absolute 0.5 0.3-1.1 x10*3/mcL Eos Absolute 0.1 0.0-0.5 x10*3/mcL Baso Absolute 0.1 0.0-0.1 x10*3/mcL Comprehensive Metabolic Pane l Reviewed date:08/04/2024 09:51:17 PM Interpretation: Performing Lab: Notes/Report: Test Performed by: [address] [address] Cloud Consultant: Bryan Aguila DO Glucose Lvl 148 74-109 mg/dL H ADA risk stratification for diabetes <100 mg/dL = Normal 100-125 mg/dL = Increased risk for future diabetes >=126 mg/dL = Diabetes, if on more than one testing occasion BUN 21 7-25 mg/dL Creatinine Lvl 1.07 0.70-1.30 mg/dL eGFR CKD-EPI 76 >=90 mL/min/1.73 m2 L The CKD-EPI equation is validated in individuals 18 years of age and older. It is less accurate in patients with extremes of muscle mass, restriction of dietary protein, ingestion of creatine, extra-renal metabolism of creatinine, or treatment with medications that affect renal tubular creatinine secretion. GFR Categories in Chronic Kidney Disease (CKD) GFR GFR (mL/min/1.73 Category: square meters): Interpretation: G1 90 or greater Normal or high* G2 60-89 Mild decrease* G3a 45-59 Mild to moderate decrease G3b 30-44 Moderate to severe decrease G4 15-29 Severe decrease G5 14 or less Kidney failure *In the absence of evidence of kidney damage, neither GFR category G1 nor G2 fulfill the criteria for CKD (Kidney Int Suppl 2013;3:1-150) Calcium Lvl 9.4 8.6-10.3 mg/dL Sodium Lvl 139 136-145 mmol/L Potassium Lvl 4.3 3.5-5.1 mmol/L Chloride Lvl 101 98-107 mmol/L CO2 29 21-31 mmol/L Anion Gap 8.8 <=16.0 mmol/L Alk Phos 70 34-104 unit/L Bilirubin Total 0.5 0.3-1.0 mg/dL Albumin Lvl 4.5 3.5-5.2 g/dL Protein Total 6.9 6.4-8.9 g/dL Albumin/Globulin Ratio 1.9 1.1-2.5 ALT 14 7-52 unit/L AST 12 13-39 unit/L L Lipid Panel {Chol, Trig, HDL , LDL} Reviewed date:08/04/2024 09:51:17 PM Interpretation: Performing Lab: Notes/Report: Test Performed by: [place] [address] Cloud Consultant: Bryan Aguila DO Cholesterol Total 110 <=199 mg/dL Triglycerides 272 0-149 mg/dL H Triglyceride Reference Ranges: <150 mg/dL Normal 150 - 199 mg/dL Borderline High 200 - 499 mg/dL High >=500 mg/dL Very High LDL 24 <=100 mg/dL LDL Optimal: <100 Near or above optimal: 100-129 Borderline high: 130-159 High: 160-189 Very high: >=190 Coronary heart disease risk factors should be considered when determining LDL goals. Please refer to ATPIII guidelines for further information. If LDL is not calculated, please call the lab to add on the direct LDL methodology, if desired. HDL 31 23-92 mg/dL Non HDL Cholesterol 79 <=130 mg/dL Chol/HDL 4 0-5 Coronary Risk 28 Coronary Risk Factor - Male Dangerous Risk: <7 % High Risk: 7-15 % Average Risk: 15-25 % Below Average Risk: 25-37 % Coronary Risk Factor - Female Dangerous Risk: <12 % High Risk: 12-18 % Average Risk: 18-27 % Below Average Risk: 27-40 % Magnesium Reviewed date:08/04/2024 09:51:17 PM Interpretation: Performing Lab: Notes/Report: Test Performed by: [place] [address] Cloud Consultant: Bryan Aguila DO Magnesium Lvl 1.8 1.6-2.4 mg/dL Vitamin B12 Reviewed date:08/04/2024 09:51:17 PM Interpretation: Performing Lab: Notes/Report: Test Performed by: [place] [id number] Cloud Consultant: Bryan Aguila DO Vitamin B12 Lvl 453 180-914 pg/mL Vitamin B12 Interpretation: Normal Range: 180-914 pg/mL Indeterminate: 140-180 pg/mL Deficient: <140 pg/mL PSA Annual Screening Reviewed date:08/04/2024 09:51:17 PM Interpretation: Performing Lab: Notes/Report: Test Performed by: [place] [id number] Cloud Consultant: Bryan Aguila DO PSA Total 1.76 0.00-4.00 ng/mL Free T4 And TSH Reviewed date:08/04/2024 09:51:17 PM Interpretation: Performing Lab: Notes/Report: Test Performed by: [place] [id number] Cloud Consultant: Bryan Aguila DO T4 Free 0.85 0.60-1.70 ng/dL TSH 2.02 0.45-5.33 mcIU/mL Hepatitis C Ab w/Rflx to HCV Quant Reviewed date:08/04/2024 09:51:17 PM Interpretation: Performing Lab: Notes/Report: Test Performed by: Genie [address] [place] [id number] Cloud Consultant: Bryan Aguila DO Hepatitis C Ab Non-Reactive Non-Reactive This assay should not be used for blood donor screening. Reason For Referral No Information Medications Medication SIG (Take, Route, Frequency, Duration) Notes Start Date End Date Status Docusate Sodium 100 MG Capsule 1 capsule as needed Orally Once a day 01/11/2025 Active metFORMIN HCl ER 500 MG Tablet Extended Release 24 Hour 2 tablets Oral twice a day; Duration: 90 days Active Multivitamin oral; Duration: 0 *Pick strength-form from [employer] for eRX* 08/28/2023 Active Trulicity 3 MG/0.5ML Solution Auto-injector Inject 3mg Subcutaneous weekly; Duration: 90 days dx E11.9. Increased dose 08/31/2024 Active Lidocaine 4 % Patch 1 patch as needed Externally daily 01/11/2025 Active Valsartan-hydroCHLORO thiazide 160-12.5 MG Tablet 1 Oral every day; Duration: 90 days 01/13/2024 Active Vitamin D3 Ultra Strength 125 MCG (5000 UT) Capsule 1 Oral every day; Duration: 0 08/28/2023 Active dilTIAZem HCl ER Coated Beads 360 MG Capsule Extended Release 24 Hour TAKE 1 CAPSULE BY MOUTH ONCE DAILY; Duration: 90 Active Trulicity 0.75 MG/0.5ML Solution Pen-injector 0.5 mL Subcutaneous weekly; Duration: 84 days 02/18/2024 Active Spironolactone 25 MG Tablet 1 Oral every day; Duration: 90 days Active cyanocobalamin(vit B-12)(bulk) miscellaneous; Duration: 0 *Reorder from [employer] for eRx and Interaction Alerts* 01/16/2024 Active Xarelto 20 MG Tablet 1 tablet with food Orally daily; Duration: 90 days 09/16/2023 Active Magnesium 250 MG Tablet Oral; Duration: 0 10/04/2020 Active Rosuvastatin Calcium 10 MG Tablet TAKE 1 TABLET BY MOUTH ONCE DAILY; Duration: 90 Active Montelukast Sodium 10 MG Tablet 1 tablet Oral daily; Duration: 90 days 03/17/2024 Active Pen Linton 31G X 6 MM Miscellaneous Give as directed with lantus daily; Duration: 90 days 06/17/2024 Active Lantus SoloStar 100 UNIT/ML Solution Pen-injector 30 units Subcutaneous daily; Duration: 90 days 12/20/2023 Active Tadalafil 5 MG Tablet 1 Oral every day; Duration: 90 days 03/16/2024 06/06/2025 Active Bactrim DS 800-160 MG Tablet 1 tablet Orally twice a day; Duration: 7 days 01/13/2025 01/20/2025 Active Senna-Docusate Sodium 8.6-50 MG Tablet 1 tablet as needed Orally Twice a day 01/11/2025 Active Metoprolol Tartrate 25 MG Tablet 1 tablet with food Orally Twice a day; Duration: 90 days 01/11/2025 Active oxyCODONE HCl 5 MG Tablet 1 tablet as needed Orally every 4 hours 01/11/2025 Active Immunizations Vaccine Route Administration Date Status Comme nts Influenza, quadrivalent, spl it, 3 years or older Unknown 02/07/2017 Administered Influenza, unspecified formulation Unknown 05/12/2001 A dministered Tdap Unknown 11/03/2010 Administered Tdap Unknown 04/16/2024 Administered Social History Tobacco Use: Social History Observation Description Date Details (start date - stop date) Never Smoker NA - NA Social History Drug/Alcohol: Social Info Question Answer Notes AUDIT-C (Standard) Did you have a drink containing alcohol in the past year? Yes How often did you have six or more drinks on one occasion in the past year? Never (0 point) How many drinks did you have on a typical day when you were drinking in the past year? 1 or 2 drinks (0 point) How often did you have a drink containing alcohol in the past year? Monthly or less (1 point) Points 1 Interpretation Negative Tobacco Use: Social Info Question Answer Notes Tobacco Control (Standard) Tobacco use: Nonsmoker Additional Details Category Social Info Options Details Migrated Social History Migrated Social History Marital status: Problems Problem Type SNOMED Code ICD Code Onset Dates Problem Status W/U Status Risk Notes Problem Morbid obesity (disorder) (796870114) Morbid (severe) obesity due to excess calories (E66.01) Active confirmed Problem Acquired hallux valgus (20363505) Hallux valgus (acquired), right foot (M20.11) Active confirmed Problem Acquired hallux valgus (02251245) Hallux valgus (acquired), left foot (M20.12) Active confirmed Problem Body mass index 40+ - severely obese (024834712) Body mass index [BMI] 40.0-44.9, adult (Z68.41) Active confirmed Problem Vitamin D deficiency (86505128) Vitamin D deficiency (E55.9) Active confirmed Problem Peripheral circulatory disorder associated with diabetes mellitus (881706950) Type 2 diabetes mellitus with other circulatory complications (E11.59) 04/03/20 22 Active confirmed Problem Mixed hyperlipidemia (504586467) Mixed hyperlipidemia (E78.2) 04/03/20 22 Active confirmed Problem Hypo-osmolality and or hyponatremia (273612884) Hypo-osmolality and hyponatremia (E87.1) 08/28/19 24 Active confirmed Problem Male erectile disorder (142403601) Male erectile disorder (F52.21) 02/08/20 17 Active confirmed Problem Sleep apnea (58814998) Sleep apnea, unspecified (G47.30) 01/13/20 24 Active confirmed Problem Essential hypertension (61501012) Essential (primary) hypertension (I10) 01/13/20 24 Active confirmed Problem Paroxysmal atrial fibrillation (234692779) Paroxysmal atrial fibrillation (I48.0) 04/03/20 22 Active confirmed Problem Gastro-esophageal reflux disease without esophagitis (472934366) Gastro-esophageal reflux disease without esophagitis (K21.9) 01/13/20 24 Active confirmed Problem Contact dermatitis (20012714) Unspecified contact dermatitis, unspecified cause (L25.9) 11/30/19 24 Active confirmed Problem Neurogenic dysfunction of the urinary bladder (864740698) Neuromuscular dysfunction of bladder, unspecified (N31.9) 03/27/20 21 Active confirmed Problem Fatigue (03367287) Other fatigue (R53.83) 01/13/20 24 Active confirmed Problem Glycosuria (45435104) Glycosuria (R81) 07/24/19 24 Active confirmed Problem Strain of biceps brachii muscle and/or tendon (312607105) Strain of muscle, fascia and tendon of other parts of biceps, left arm, initial encounter (S46.212A) 04/04/20 23 Active confirmed Problem 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 medical examination (777964272) 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 for examination for driving license (Z02.4) 03/31/20 24 Active confirmed Problem Screening for malignant neoplasm of colon (431036312) Encounter for screening for malignant neoplasm of colon (Z12.11) 07/14/19 23 Active confirmed Problem History of excision of intestinal structure (899582576) Acquired absence of other specified parts of digestive tract (Z90.49) 08/28/19 24 Active confirmed Problem Body mass index 40+ - severely obese (643527363) Body mass index (BMI) 40.0-44.9, adult (Z68.41) 03/31/20 24 Active confirmed Problem Lower urinary tract symptoms due to benign prostatic hypertrophy (30779682800800) Enlarged prostate with lower urinary tract symptoms (N40.1) 10/05/19 21 Active confirmed Vital Signs Heart Rate 87 /min 01/12/2025 Temperature 97.2 degrees Fahrenheit 01/12/2025 Respiratory Rate 20 /min 01/12/2025 Blood pressure diastolic 78 mm Hg 01/12/2025 Oximetry 97 % 08/03/2024 Height-cm 185.42 cm 01/12/2025 Weight-kg 157.76 kg 08/03/2024 Height 73 in 01/12/2025 Blood pressure systolic 124 mm Hg 01/12/2025 Weight 347.8 lbs 08/03/2024 BMI 45.88 kg/m2 08/03/2024 Encounters Encounter Location Date Provider Diagnosis [address] [address] 01/16/2024 Provider Migration Essential (primary) hypertension I10 and Type 2 diabetes mellitus with other circulatory complications E11.[address] [address] 03/31/2024 Stephanie Beckert Mixed hyperlipidemia E78.2 ; Type 2 diabetes mellitus with other circulatory complications E11.59 ; Enlarged prostate with lower urinary tract symptoms N40.1 ; Paroxysmal atrial fibrillation I48.0 ; Body mass index (BMI) 40.0-44.9, adult Z68.41 and Encounter for examination for driving license Z02.[address] [address] 08/03/2024 [facility] Encounter for [facility] adult medical examination without abnormal findings Z00.00 ; Uncontrolled type 2 diabetes mellitus with hyperglycemia E11.65 ; Paroxysmal atrial fibrillation I48.0 ; Neuromuscular dysfunction of bladder, unspecified N31.9 ; Morbid (severe) obesity due to excess calories E66.01 ; BMI 45.0-49.9, adult Z68.42 ; Tinea pedis of both feet B35.3 ; Hallux valgus (acquired), right foot M20.11 ; Mixed hyperlipidemia E78.2 ; Hallux valgus (acquired), left foot M20.12 ; Sleep apnea, unspecified G47.30 ; Need for hepatitis C screening test Z11.59 ; Essential (primary) hypertension I10 ; Vitamin D deficiency E55.9 ; Vitamin B12 deficiency E53.8 ; Prostate cancer screening Z12.5 and Influenza vaccine refused Z28.21 [facility] [address] [place] [address] 01/12/2025 Stephanie Beckert Subluxation of right shoulder joint, subsequent encounter S43.001D ; Other closed displaced fracture of proximal end of left humerus with routine healing, subsequent encounter S42.292D ; 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 [address] [place] [address] 04/04/[address] [facility] [address] [place] [address] 04/05/2024 Provider Migration [facility] [address] [place] [address] 01/13/2025 [facility] [address] [place] [address] 05/07/2024 [facility] [address] [place] [address] 05/14/2024 [facility] [address] [place] [address] 05/19/2024 [facility] Type 2 diabetes mellitus with other circulatory complications E11.59 [facility] [address] [place] [address] 06/01/2024 [facility] Type 2 diabetes mellitus with other circulatory complications E11.59 [facility] [address] [place] [address] 06/11/2024 [facility] [address] [place] [address] 06/17/2024 [place] [address] [place] [address] 07/09/2024 [facility] [address] [place] [address] 08/04/2024 [facility] [address] [place] [address] 08/31/2024 [facility] [address] [place] [address] 09/29/2024 [facility] [address] [place] [address] 01/11/2025 [facility] Assessments Encounter Date Diagnosis (ICD Code) Assessment Notes Treatment Notes Treatment Clinical Notes Section Notes 05/19/2024 Type 2 diabetes mellitus with other circulatory complications (ICD-10 - E11.59) 06/01/2024 Type 2 diabetes mellitus with other circulatory complications (ICD-10 - E11.59) 08/03/2024 Encounter for general adult medical examination without abnormal findings (ICD-10 - Z00.00) AWV Instructions The patient's health risk assessment was reviewed during this visit. The patient's chart was reviewed and updated See scanned images from paperwork reviewed and completed today The following topics have been addressed/discuss ed at today's visit: All recommended screening services (as applicable) including infectious diseases, osteoporosis, diabetes and/or diabetes complications, glaucoma, cognitive impairment, hearing impairment, alcohol misuse, cancer screening Fall risk assessment Alcohol misuse Counseling (if applicable) Tobacco Cessation Counseling (if applicable) Immunizations Vital Signs End of Life Care Patient was provided with a written copy of the care plan from today's visit to include topics of Fall prevention, Nutrition, Physical activity, Tobacco-use cessation, Social engagement, Weight loss, Cognition. 5 mins spent administering and reivewing the PHQ-9. Results show less than 5. He denies depression. Pt declined POA and living will paperwork. Refused all vaccines. UTD on TDaP. Declined colonoscopy Declined AAA screen 01/12/2025 Subluxation of right shoulder joint, subsequent [...] up with orthopedic surgery on January 22, 2025.-[facility] PT following w/patient. 08/03/2024 Uncontrolled type 2 diabetes mellitus with hyperglycemia (ICD-10 - E11.65) consider increasing trulicity to helpw tih weight loss. 03/31/2024 Type 2 diabetes mellitus with other circulatory complications (ICD-10 - E11.59) 03/31/2024 Mixed hyperlipidemia (ICD-10 - E78.2) 03/31/2024 Paroxysmal atrial fibrillation (ICD-10 - I48.0) 03/31/2024 Encounter for examination for driving license (ICD-10 - Z02.4) 03/31/2024 Body mass index (BMI) 40.0-44.9, adult (ICD-10 - Z68.41) 03/31/2024 Enlarged prostate with lower urinary tract symptoms (ICD-10 - N40.1) 01/16/2024 Type 2 diabetes mellitus with other circulatory complications (ICD-10 - E11.59) 01/16/2024 Essential (primary) hypertension (ICD-10 - I10) 01/12/2025 Status post reverse arthroplasty of left shoulder (ICD-10 - Z96.612) 08/03/2024 Paroxysmal atrial fibrillation (ICD-10 - I48.0) continue eliquis. no recent events 08/03/2024 Neuromuscular dysfunction of bladder, unspecified (ICD-10 - N31.9) intermittent self caths. Continue. No recent UTI. 01/12/2025 Laceration of right lower extremity, subsequent [...] surgeon for evaluation prior to suture removal. 08/03/2024 Morbid (severe) obesity due to excess calories (ICD-10 - E66.01) Should address with DM2 treatment and diet modification. Discussed this today. 01/12/2025 Persistent atrial fibrillation (ICD-10 - I48.19) -HR was fast in the hosptital despite cardizem 360mg -Metoprolol 25mg BID added. HR is 80's and BP is good. Will continue metoprolol at this time 01/12/2025 Urinary retention (ICD-10 - R33.9) - is doing catherization at this time due to limited use of arms at this time. 08/03/2024 BMI 45.0-49.9, adult (ICD-10 - Z68.42) 08/03/2024 Tinea pedis of both feet (ICD-10 - B35.3) use topical cream or spray for 6 weeks. 08/03/2024 Hallux valgus (acquired), right foot (ICD-10 - M20.11) Offer custom arch suppors or even over the counter ones may help. 08/03/2024 Mixed hyperlipidemia (ICD-10 - E78.2) continue statin, check lab 08/03/2024 Hallux valgus (acquired), left foot (ICD-10 - M20.12) 08/03/2024 Sleep apnea, unspecified (ICD-10 - G47.30) Rec wearing CpAP. 08/03/2024 Need for hepatitis C screening test (ICD-10 - Z11.59) blood test today based on eyar. 08/03/2024 Essential (primary) hypertension (ICD-10 - I10) BP well controlled currently. No need to change tx plans. 08/03/2024 Vitamin D deficiency (ICD-10 - E55.9) continue supplement. 08/03/2024 Vitamin B12 deficiency (ICD-10 - E53.8) continue supplement. 08/03/2024 Prostate cancer screening (ICD-10 - Z12.5) 08/03/2024 Influenza vaccine refused (ICD-10 - Z28.21) Plan Of Treatment Next Appt Details Provider Name:KRUNAL Kothari , 02/12/2025 01:30:00 PM, [address], [place], [address], [phone] Provider Name:Stephanie Gutierrez madisny, 03/23/2025 09:00:00 AM, [address], [place], [address], [phone] Provider Name:KRUNAL Kothari , 08/05/2025 10:30:00 AM, [address], [place], [address], [phone] Insurance Providers Payer Name Payer Address Payer Phone Subscriber Number Group Number Insured Name Patient Relationship to Insured Coverage Start Date Coverage End Date [employer] [address] [facility] [address] [place] [address] [id number] Kleber Melara Self - patient is the insured 5 [facility] [employer] Reyna [facility] [place] [address] [id number] Kelton Kleber Self - patient is the insured 3 [employer] R[employer] [address] [place] [address] [id number] Henrietta Melaraence Self - patient is the insured 3 [employer] B [address] [place] [address] [id number] Kleber Melara Self - patient is the insured 3 Medical (General) History Surgical History Surgery Date(Month/Year) (04690) PROSTATECTOMY (TURP) EGD 2010 Colonoscopy, flexible, proxi mal to splenic flexure; diagnostic, with or without collection of specim ,notes : repeat 3-5 yrs 2011 [email or web address] ,notes : [place] kaplan - Dr Key Simmnos 08/19/23 Dr Alberto Yuen - right a nterior glenohumerol dislocation, right knee traumatic arthrotomy 12/29/2024
--- OUTSIDE RECORDS SUMMARY | 2025-01-13 12:36 | XMS_ITS | Clinical Summary ---
Author Organization [facility] Address [address] [place] [address] Care Team Providers Care Solar Energy Installation Manager Name Role Phone Joselyn Kothari MD Primary Care Provider Allergies Active Allergy Reactions Criticality Noted Date Comments Penicillins Unknown 10/14/2015 Medications bethanechol (URECHOLINE) 50 mg tablet Take 50 mg by mouth 4 (four) times a day 9 Active cholecalciferol (VITAMIN D-3) 5,000 unit capsule Take 2 tablets by mouth daily 3 Active diltiaZEM CD (CARDIZEM CD) 360 mg 24 hr capsule 1 Active liraglutide (VICTOZA) 0.6 mg/0.1 mL (18 mg/3 mL) injection Inject under the skin 8 Active metFORMIN XR (GLUCOPHAGE XR) 500 mg 24 hr tablet 1 Active montelukast (SINGULAIR) 10 mg tablet 1 Active nitroglycerin (NITROSTAT) 0.4 mg SL tablet Nitrostat (nitroglycerin) Tablet, Sublingual 0.4 mg; take 1 tablet under tongue, for chest pain as directed; 25; 1; -Feb-2010; Active 0 Active pyridoxine (VITAMIN B-6) 100 mg tablet Take 1 tablet by mouth daily 3 Active rivaroxaban (XARELTO) 20 mg tablet Take 20 mg by mouth daily Active rosuvastatin (CRESTOR) 10 mg tablet 1 Active spironolactone (ALDACTONE) 25 mg tablet 1 Active tamsulosin (FLOMAX) 0.4 mg extended release capsule 1 Active valsartan-hydro CHLOROthiazide (DIOVAN-HCT) 160-12.5 mg per tablet Take 1 tablet by mouth daily Active KRILL OIL ORAL Take 1 tablet by mouth daily 3 Active semaglutide (Ozempic) 0.25 mg or 0.5 mg(2 mg/1.5 mL) pen injector Inject 0.25 mg under the skin every 7 days Active Active Problems Problem Noted Date Diagnosed Date CATAL[place] (obstructive sleep apnea) 09/12/2020 Assessment & Plan (02/13/2021 10:12 AM CDT): The patient will continue with CPAP therapy at 11 cm water pressure to treat obstructive sleep apnea. Patient did receive an order for a new CPAP card set at 11 cm water pressure and a full set of supplies. [employer]. Patient is benefitting from CPAP therapy. Assessment & Plan (09/12/2020 9:21 AM CDT): The patient is having more nocturnal awakenings associated with snoring under the mask. His energy level has decreased slightly. I will increase the CPAP setting to 11 cm water pressure. I will send this order to [facility]. There was no data on his SmartCard but we did calibrate and assess the CPAP unit and it was delivering 9 cm water pressure.. He should follow-up here in 3 months. Surgical History Surgery Date Site/Laterality Comments TRANSURETHRAL RESECTION OF PROSTATE SINUS SURGERY Medical History Medical History Date Comments Diabetes mellitus (HCC) Family History Medical History Relation Name Comments Heart disease Father Cancer Other Relation Name Status Comments Father Mother Other Social History Tobacco Use Types Packs/Day Years Used Date Smoking Tobacco: Former Smokeless Tobacco: Former AUDIT-C Answer Date Recorded Q1: How often do you have a drink containing alc ohol? Never 02/13/2021 Average Number of Drinks Not on file 021 Q3: How often do you have si x or more drinks on one occasion? Never 02/13/2021 Personal Safety Answer Date Recorded Getting School Help Needed Not on file 07/06 Sex and Gender Information Value Date Recorded Sex Assigned at Not on file Legal Sex Male 11:19 AM CDT Gender Identity Not on file Sexual Orientation Not on file Obstetrics History Last Filed Vital Signs Vital Sign Reading Time Taken Comments Blood Pressure 122/70 02/13/2021 9:50 AM CDT Pulse 90 02/13/2021 9:50 AM CDT Temperature 36.7 C (98 F) 02/13/2021 9:50 AM CDT Respiratory Rate 18 02/13/2021 9:50 AM CDT Oxygen Saturation 96% 02/13/2021 9:50 AM CDT Inhaled Oxygen Concentration - - Weight 146.1 kg (322 lb) 02/13/2021 9:50 AM CDT Height 185.4 cm (6' 1) 02/13/2021 9:50 AM CDT Body Mass Index 42.48 02/13/2021 9:50 AM CDT Plan of Treatment Not on file Insurance [facility] Care Teams Solar Energy Installation Manager Relationship Specialty Start Date End Date Joselyn Kothari MD [address], [place] [id number] PCP - General Family Medicine 08/22/20
== END 2025-01-13 11:27 | disposition home or self-care (01) ==
PROVIDERS: PCP Family Medicine; Visit Provider Family Medicine
DX: R82.998 Other abnormal findings in urine (principal); Z87.438 Personal history of other diseases of male genital organs; Z87.440 Personal history of urinary (tract) infections
CPT/HCPCS: 81001; 87077; 87086; 87186